=== PATIENT | female | born 2000 | race Caucasian/White ===

== ENCOUNTER → 2022-05-06 10:43 | Outpatient (BNVA) | payer OTHER, SELFPAY | PROVIDERS: PCP Physician Assistant Medical; Visit Provider Physician Assistant | DX: Z13.89 Encounter for screening for other disorder (principal) ==

== ENCOUNTER → 2022-05-07 08:09 | Outpatient (BNVA) | payer MEDICAID, SELFPAY | PROVIDERS: PCP Physician Assistant Medical; Visit Provider Surgery ==

== ENCOUNTER 2022-05-09 13:41 | Outpatient (REF) | payer MEDICAID, SELFPAY ==
--- NOTE | ~2022-05-09 | XR_ITS ---
EXAMINATION: XR CHEST CLINICAL INFORMATION: J45.909 - Unspecified asthma, uncomplicated COMPARISON: Remote chest radiographs 12/09/2007. TECHNIQUE: 2 views of the chest were obtained. FINDINGS: Lungs clear. No infiltrate or effusion. No hyperinflation. No coarsening bronchiolar markings. Heart size normal. The hilar and mediastinal contours and visualized bony structures are unremarkable. XR/XR chest 2V IMPRESSION: Unremarkable examination.
--- NOTE | 2022-05-09 14:33 | ECG_ITS ---
Test Reason : asthma Blood Pressure : / mmHG Vent. Rate : 080 BPM Atrial Rate : 080 BPM P-R Int : 162 ms QRS Dur : 078 ms QT Int : 356 ms P-R-T Axes : 048 065 042 degrees QTc Int : 410 ms Normal sinus rhythm with sinus arrhythmia Normal ECG No previous ECGs available Referred By: Inderjit Recinos Electronically Signed By:MARY CHAUDHRY MD
[2022-05-09 14:34] LABS: MANUAL DIFF FLAG NO
[2022-05-09 14:48] LABS: Basophils Percent Auto 0.2 % (0-2); Eosinophils Percent Auto 0.4 % (0-4); Hematocrit 38.7 % (37.0-47.0); Hemoglobin 13.1 g/dl (12.0-16.0); Imm Gran Abs Auto 0.03 X10*3/uL (0.00-0.03); Imm Gran Pct Auto 0.3 % (0.0-0.4); Lymphocytes Absolute Auto 3.8 X10*3/uL (1.2-4.9); Lymphocytes Percent Auto 41.4 % (20-40); Mean Corpuscular HGB Conc 33.9 g/dl (31.0-35.0); Mean Corpuscular Hemoglobin 29.4 pg (27.0-33.0); Mean Corpuscular Volume 86.8 fL (80.0-98.0); Mean Platelet Volume 8.6 fL (9.4-12.3); Monocytes Absolute Auto 0.5 X10*3/uL (0.1-1.2); Monocytes Percent Auto 5.1 % (2-11); Neutrophils Absolute Auto 4.9 x10*3/uL (2.0-8.3); Neutrophils Percent Auto 52.6 % (45-73); Platelet Count 300 X10*3/uL (160-400); Red Blood Count 4.46 X10*6/uL (4.20-5.50); Red Cell Distribution Width 13.2 % (11.0-16.0); White Blood Count 9.3 X10*3/uL (4.8-10.8)
[2022-05-09 15:22] LABS: Estimated Average Glucose 100 mg/dL; Hemoglobin A1c % 5.1 %
[2022-05-09 16:20] LABS: Alanine Aminotransferase 23 U/L (0-31); Albumin Level 4.3 g/dL (3.5-5.0); Alkaline Phosphatase 64 U/L (39-117); Anion Gap 11 (12-20); Aspartate Amino Transferase 18 U/L (5-31); Bilirubin Total 0.5 mg/dL (0.0-1.0); Blood Urea Nitrogen 11 mg/dL (9-16); C Reactive Protein 0.38 mg/dL (< or = 0.50); Calcium 9.6 mg/dL (8.4-10.2); Carbon Dioxide 28 mmol/L (22-29); Chloride 106 mmol/L (96-108); Cholesterol 218 mg/dL; Estimated Glomerular Filt Rate > 60; Glucose Random 78 mg/dL (60-115); HDL Cholesterol 45 mg/dL; Iron 137 mcg/dL (30-160); LDL Cholesterol Calculated 152 mg/dl; Percent Iron Saturation 41 % (15-50); Potassium 4.4 mmol/L (3.3-5.1); Sodium 141 mmol/L (135-145); Total Iron Binding Capacity 338 mcg/dL (228-428); Total Protein 7.4 g/dL (6.5-8.0); Triglycerides 107 mg/dL; Unsaturated Iron Binding 201 ug/dL
[2022-05-09 16:53] LABS: Ferritin 36 ng/mL (10-122); Insulin 6 uU/mL (2-29); TSH reflex Free T4 1.32 uIU/mL (0.32-4.0); Vitamin B12 431 pg/mL (200-900)
[2022-05-09 18:18] LABS: Vitamin D 25-OH Total 12.7 ng/mL (>30)
[2022-05-09 21:05] LABS: Folate 11.1 ng/mL (> or = 4.0)
[2022-05-12 12:48] LABS: Calcium (PTHI) 9.4 mg/dL (8.6-10.2); PTHI 31 pg/mL (16-77)
[2022-05-14 05:59] LABS: Zinc 93 mcg/dL (60-130)
[2022-05-15 00:28] LABS: Vitamin A 67 mcg/dL (38-98)
[2022-05-15 15:33] LABS: Vitamin B1 16 nmol/L (8-30)
== END 2022-05-09 13:42 | disposition home or self-care (01) ==
LOC: HO.LAB 13:41
PROVIDERS: Visit Provider Surgery
DX: K21.9 Gastro-esophageal reflux disease without esophagitis (principal); J45.909 Unspecified asthma, uncomplicated
CPT/HCPCS: 36415; 71046; 80053; 80061; 82306; 82607; 82728; 82746; 83036; 83525; 83540; 83970; 84425; 84443; 84590; 84630; 85025; 86140; 93005

== ENCOUNTER → 2022-05-14 11:52 | Outpatient (BNVA) | payer MEDICAID, SELFPAY | PROVIDERS: PCP Physician Assistant Medical; Visit Provider Physician Assistant Surgical | DX: Z11.0 Encounter for screening for intestinal infectious diseases (principal) | CPT/HCPCS: 99211 ==

== ENCOUNTER 2022-05-14 18:17 | Outpatient (REF) | payer MEDICAID, SELFPAY ==
[2022-05-15 15:00] LABS: H Pylori Breath Test Negative (Negative)
== END 2022-05-14 18:18 | disposition home or self-care (01) ==
LOC: HO.LNP 18:17
PROVIDERS: Visit Provider Surgery
DX: J45.909 Unspecified asthma, uncomplicated (principal); K21.9 Gastro-esophageal reflux disease without esophagitis
CPT/HCPCS: 83013

== ENCOUNTER → 2022-05-26 09:59 | Outpatient (BNVA) | payer OTHER, SELFPAY | PROVIDERS: PCP Physician Assistant Medical; Visit Provider Dietitian, Registered | DX: E66.01 Morbid (severe) obesity due to excess calories (principal); Z68.41 Body mass index [BMI] 40.0-44.9, adult | CPT/HCPCS: 97802 ==

== ENCOUNTER → 2022-05-28 12:19 | Outpatient (BNVA) | payer MEDICAID, SELFPAY | PROVIDERS: PCP Physician Assistant Medical; Visit Provider Counselor Mental Health ==

== ENCOUNTER → 2022-06-06 10:20 | Outpatient (BNVA) | payer MEDICAID, SELFPAY | PROVIDERS: PCP Physician Assistant Medical; Visit Provider Surgery | DX: E66.01 Morbid (severe) obesity due to excess calories (principal); Z68.41 Body mass index [BMI] 40.0-44.9, adult | CPT/HCPCS: 99212 ==

== ENCOUNTER → 2022-06-23 12:53 | Outpatient (BNVA) | payer OTHER, SELFPAY | PROVIDERS: PCP Physician Assistant Medical; Visit Provider Counselor Mental Health | DX: F50.81 Binge eating disorder (principal) ==

== ENCOUNTER 2022-06-27 07:44 | Outpatient (REF) | payer OTHER, SELFPAY ==
--- NOTE | ~2022-06-27 | FL_ITS ---
PROCEDURE: XR FLUOROSCOPY UPPER GI WITH AIR CLINICAL INFORMATION: Asthma. Preop. COMPARISON: None available. TECHNIQUE: Routine upper GI air-contrast study was performed in upright and lying position. FINDINGS: Following oral administration of thick barium and effervescent granules in upright view there is normal propagation of bolus from the oral cavity through the pharynx, esophagus into stomach without any evidence of obstruction, narrowing or stricture. On placing patient supine and prone lying, the course, caliber and peristalsis of the stomach, duodenal bulb and the sweep is normal. The mucosal pattern of stomach and the duodenum is normal. Minimal gastroesophageal reflux without hiatal hernia is noted. FLUOROSCOPY TIME: 0.9 minutes DOSE AREA PRODUCT: 27.857 uGy-m2 (microgray-meter squared) FL/FL upper GI w air IMPRESSION: Minimal gastroesophageal reflux without hiatal hernia.
--- NOTE | ~2022-06-27 | US_ITS ---
EXAMINATION: US COMPLETE ABDOMEN WITH LIVER ELASTOGRAPHY CLINICAL INFORMATION: Gastroesophageal reflux COMPARISON: None available. TECHNIQUE: Real-time imaging of the abdominal viscera. Noninvasive ultrasound liver fibrosis assessment is performed using Nakul ElastPQ point quantification shear wave elastography (2D-SWE) with a C5-2 MHz transducer. Multiple elastography samples are obtained. FINDINGS: PANCREAS: Visualized portions of pancreas are normal in appearance. ABDOMINAL AORTA: The proximal, middle, and distal aortic segments are normal in caliber. INFERIOR VENA CAVA: Visualized portions are normal. LIVER: The liver is normal in size. Liver contour is smooth. Diffusely increased echogenicity of the liver. No focal hepatic lesions. No intrahepatic biliary ductal dilatation. The right lobe measures 15.5 cm in length. The left lobe measures 7.1 cm in length. Portal flow is hepatopedal Shear wave liver elastography median stiffness is 1.58 m/s (reference: normal median stiffness is 1.3 m/s or less). IQR/median stiffness to assess sampling precision is 0.13 (reference: good quality data set is IQR/median stiffness of 0.15 or less). GALLBLADDER: The gallbladder is physiologically distended. There is a 1.7 cm mobile gallstone noted. Also appreciated is a 3 mm echogenic nonshadowing focus contiguous with the gallbladder wall which is suspected to represent a tiny polyp. COMMON BILE DUCT: Normal in caliber measuring 0.4 cm in diameter. RIGHT KIDNEY: Normal. No hydronephrosis. No renal calculi or focal parenchymal lesions. The kidney measures 10.5 cm in maximum dimension. LEFT KIDNEY: Normal. No hydronephrosis. No renal calculi or focal parenchymal lesions. The kidney measures 9.5 cm in maximum dimension. SPLEEN: Normal. The spleen measures 11.7 cm in maximum dimension. FREE FLUID: None. US/US abdomen comp w elastography IMPRESSION: 1. Diffusely increased liver echogenicity suggesting hepatic steatosis. 2. Liver elastography: In the absence of other known clinical signs, measurements rule out compensated advanced chronic liver disease. If there are known clinical signs, further testing may be needed for confirmation. REFERENCE: Society of Radiologists in Ultrasound Liver Stiffness Thresholds (2020): LIVER STIFFNESS THRESHOLDS: *Liver Stiffness equal or less than 1.3 m/s: High probability of being normal. *Liver Stiffness less than 1.7 m/s: In the absence of other known clinical signs, rules out compensated advanced chronic liver disease. *Liver Stiffness 1.7-2.1 m/s: Suggestive of compensated advanced chronic liver disease but need further test for confirmation. *Liver Stiffness over 2.1 m/s: Rules in compensated advanced chronic liver disease. *Liver Stiffness over 2.4 m/s: Suggestive of clinically significant portal hypertension. QUALITY OF DATA SET: *IQR/Median value equal or less than 0.15 implies a quality data set. *IQR/Median value over 0.15 implies a poor quality data set. SIGNIFICANT CHANGE FROM PRIOR EXAM: Significant change if liver stiffness measurement is 10% or greater from prior exam. OTHER CONSIDERATIONS: The stage of liver fibrosis may be overestimated in the setting of acute hepatitis, liver inflammation, elevated liver function tests, hepatic vascular congestion, obstructive cholestasis, non-fasting state, and infiltrative diseases such as amyloidosis and lymphoma. In some patients with NAFLD, the liver stiffness thresholds for compensated advanced chronic liver disease may be lower. In causes other than viral hepatitis and NAFLD, liver stiffness thresholds are not well established.
== END 2022-06-27 07:45 | disposition home or self-care (01) ==
LOC: HO.US 07:44
PROVIDERS: PCP Physician Assistant Medical; Visit Provider Surgery
DX: Z01.818 Encounter for other preprocedural examination (principal); E66.9 Obesity, unspecified; K21.9 Gastro-esophageal reflux disease without esophagitis; J45.909 Unspecified asthma, uncomplicated
CPT/HCPCS: 74246; 76705; 76981

== ENCOUNTER → 2022-06-30 08:27 | Outpatient (BNVA) | payer OTHER, SELFPAY | PROVIDERS: PCP Physician Assistant Medical; Visit Provider Surgery | DX: E66.01 Morbid (severe) obesity due to excess calories (principal) ==

== ENCOUNTER → 2022-07-10 13:17 | Outpatient (BNVA) | payer OTHER, SELFPAY | PROVIDERS: PCP Physician Assistant Medical; Visit Provider Surgery ==

== ENCOUNTER → 2022-07-21 10:40 | Outpatient (BNVA) | payer OTHER, SELFPAY | PROVIDERS: PCP Physician Assistant Medical; Visit Provider Counselor Mental Health | DX: F50.81 Binge eating disorder (principal) ==

== ENCOUNTER 2022-07-31 07:00 | Day surgery (SDC) | payer MEDICAID, SELFPAY ==
[2022-07-28 15:37] VITALS: BMI 39.4
--- NOTE | 2022-07-30 09:06 | HO.ANESPROP2 ---
Documented by User: Maria Luisa Shen NP 07/30/22 09:07 HPI - Anesthesia Eval Consult details Narrative: 22yo F for Cholecystectomy Laparoscopic,poss open PMFSH Active Problems Active Problems: All Active Problems (Updated 07/10/22 @ 14:01 by Adeel Phillips MD) Epigastric abdominal pain (Acute) Cholelithiasis (Acute) Binge-eating disorder, mild (Acute) Vitamin D deficiency (Acute) Morbid obesity (Acute) Back pain (Acute) Anxiety (Acute) GERD (gastroesophageal reflux disease) (Acute) Asthma (Acute) Past Medical History Medical History Anxiety Asthma Back pain GERD (gastroesophageal reflux disease) Family History Family History Mother No problems noted. Sister No problems noted. Sister No problems noted. Surgical History Surgical History Hx of wisdom tooth extraction Social History Social History Alcohol intake: current Alcohol intake frequency: holidays/special occasions only Patient Tobacco Use Status: Never used Tobacco Are you DNR?: No Advance Directives: No Advance Directives Information Provided: No Advance Directives on File: No Recently lost weight without trying: No Nutrition Risks: No Nutritional Risk Meds Allergies Allergy/AdvReac Type Severity Reaction Status Date / Time No Known Allergies Allergy Verified 07/10/22 13:25 Home Medications Medication Instructions Recorded Confirmed Last Taken Type albuterol sulfate 90 mcg/actuation 2 puff inhalation Q6H PRN Wheezing 05/07/22 07/28/22 Unknown History aerosol inhaler Exam Exam Date and Time: July 30, 2022 09 Height,Weight and Vital Signs: Height 4 ft 11 in Weight 88.451 kg Pertinent Lab Results Pertinent Lab Results: Laboratory Tests 05/09/22 05/09/22 14:31 14:31 WBC 9.3 Hgb 13.1 Hct 38.7 Plt Count 300 Sodium 141 Potassium 4.4 Chloride 106 Carbon Dioxide 28 BUN 11 Creatinine 0.78 Narrative Narrative: EKG 04/2022 Vent. Rate : 080 BPM ? ? Atrial Rate : 080 BPM ?? P-R Int : 162 ms? QRS Dur : 078 ms ? ? QT Int : 356 ms ? ? ? P-R-T Axes : 048 065 042 degrees ?? QTc Int : 410 ms ? Normal sinus rhythm with sinus arrhythmia Normal ECG No previous ECGs available Assessment and Plan Assessment Anesthesia Assessment: Chart Reviewed Documented by User: Marcela Leung MD 07/31/22 08:10 PMFSH Past Medical History Medical History Anxiety Asthma Back pain GERD (gastroesophageal reflux disease) Family History Family History Mother No problems noted. Sister No problems noted. Sister No problems noted. Family history of problems with anesthesia: No Surgical History Surgical History Hx of wisdom tooth extraction History of Problems with Anesthesia: No Social History Social History Alcohol intake: current Alcohol intake frequency: holidays/special occasions only Patient Tobacco Use Status: Never used Tobacco Are you DNR?: No Advance Directives: No Advance Directives Information Provided: No Advance Directives on File: No Recently lost weight without trying: No Nutrition Risks: No Nutritional Risk Meds Allergies Allergy/AdvReac Type Severity Reaction Status Date / Time No Known Allergies Allergy Verified 07/10/22 13:25 Home Medications Medication Instructions Recorded Confirmed Last Taken Type albuterol sulfate 90 mcg/actuation 2 puff inhalation Q6H PRN Wheezing 05/07/22 07/28/22 Unknown History aerosol inhaler Exam Airway Mallampati Class: II TM Dist: >3cm Denture: Upper Heart: rrr Lungs: cta Assessment and Plan Assessment Anesthesia Assessment: Anesthesia Plan Discussed Final Anesthetic Review Family History of Problems with Anesthesia: No History of Problems with Anesthesia: No ASA Class: II Final Preanesthetic Review: No Changes in Pt Med Stat, Meds/Allgs Chart Reviewed, Consent Obtained/Reviewed and Anes Risks/Benef Reviewed Patient Risk: Low Procedure Risk: Intermediate Anesthetic Plan Anesthetic Plan: GA Disposition: Standard PACU
[2022-07-31] VITALS (9 sets, daily range): BP systolic 102–110; BP diastolic 56–74; PULSE 63–81; RESP 14–20; TEMP 36.1–36.3; O2SAT 97–100
--- NOTE | 2022-07-31 06:54 | MHC.SHP ---
Pre-Procedural Eval Section A Date of Service: 07/31/22 The patient is an INPATIENT: No The History & Physical has been completed within 30 days and I have reviewed it.: Yes Section B Chief Complaint: Calculus of gallbladder without cholecystitis with Allergies: Allergies Allergy/AdvReac Type Severity Reaction Status Date / Time No Known Allergies Allergy Verified 07/10/22 13:25 Plan I have reviewed the history and physical and performed a pertinent physical examination on my patient. No changes have occurred unless specified. Time Spent With Patient Time: Total time managing care of this patient today ____ minutes.
--- NOTE | 2022-07-31 06:55 | W.PM.OPN ---
Operative Note Operative Note Date of Service: 07/31/22 Narrative: Preop diagnosis: [Gallstones and chronic calculous cholecystitis] Postop diagnosis: [Same] Procedure: [Laparoscopic cholecystectomy] Surgeon: Adeel Phillips MD Assist: [Sharyn Deleon RN] Anesthesia: [GET, Marcaine, 0.5% with epi] Estimated blood loss: [3cc] Specimen: [Gallbladder with contents] Intraoperative findings: [Adhesions of the omentum to the mid body of the gallbladder consistent with chronic calculous cholecystitis were noted; critical view of safety demonstrated with a 4-5 mm cystic duct and replace cystic artery that had branching at the gallbladder/liver interface. Artery was 4-5 mm and dissected along its entire course to its termination at the fundus of the gallbladder.] Indications: [The patient is a 22-year-old woman who is had a lifelong struggle with obesity. She was noted to have gallstones in her abdominal ultrasound workup and had mentioned symptoms of gastritis there were assessed at an outside hospital. In careful history evaluation, it sounds like the patient likely has chronic calculous cholecystitis given ongoing issues with intermittent indigestion and colicky pain, and the option of continued observation versus excision were discussed. I explained the symptoms of biliary colic and recommended laparoscopic cholecystectomy. I reviewed the option of continued observation and 2nd opinion which was declined. I also reviewed the inherent risks to surgery which include, but are not limited to: Bleeding that could require another operation or blood transfusion, the need for open surgery, the unlikely but possible issue of bile leak that could require an ERCP, the risk of retained common duct stones that could require an ERCP, the risk of common bile duct injury which would require transfer to a larger institution for another operation. Patient seemed to understand her options, declined a bioinformaticist or 2nd opinion and wants to proceed.] Procedure: [The patient was identified in preoperative holding and again in the operating room and placed supine on the table. An appropriate time-out was performed and preemptive local used at all trocar insertion sites. I began at the patient's supraumbilical midline and attempted to place a Veress needle through a stab incision, but could not obtain an appropriate drop test, so I left the Veress needle in Situ and opted for a left upper quadrant insertion, so a left subcostal skin wheal was raised with local, a stab incision made and the Veress needle inserted without difficulty. An appropriate drop test was performed. The needle was connected to high flow and opening pressures were 6 mmHg. A pneumoperitoneum of 15 mmHg was then obtained using carbon dioxide and I accessed the patient's abdomen through the right side of the abdomen in the anterior axillary line at the level of the umbilicus using a 5 mm Optiview trocar and 30 degree/5 mm laparoscopic without incident. Next a 5 mm epigastric and 5 mm right subcostal port were placed with preemptive analgesia under direct laparoscopic vision & a 12 mm trocar inserted at the umbilicus. The gallbladder was clearly identified and grasped by its fundus. It was retracted cranially and anteriorly and a lysis of adhesions of the omentum that was adherent to the body of the gallbladder was performed with minimal cautery that dissection began in the cystic triangle. The cystic duct was identified at its junction on the gallbladder and dissection began laterally, then circumferentially dissected using the [place] dissector and hook. The cystic artery was then carefully identified and found to be replaced so its course was dissected on the gallbladder to its termination at the fundus. Proximal cystic artery was circumferentially dissected. Once dissection of both structures was complete and the critical view of safety demonstrated, the duct and artery were double clipped proximally and once distally and sharply divided. Electrocautery was used to remove the gallbladder from its fossa on the liver. Liver bed was inspected for hemostasis and the clips were noted to be on the respective structures. The gallbladder was placed in an Endo-Catch bag and delivered through the umbilicus under direct laparoscopic vision. The abdomen was again inspected with the laparoscoped and a abdomen deflated to assess for hemostasis. The patient was returned to neutral position, the abdomen deflated and the fascia of the supraumbilical incision closed with interrupted Vicryl sutures. Skin was closed with 4-0 Monocryl subcuticular sutures. Mastisol and Steri-Strips were applied followed by Band-Aids. The patient tolerated the procedure well and was extubated recovered in stable condition. All sponge instrument counts were correct. At the patient's request I called Barbara at [phone] apprise her of the operation and post-op plan. Her questions seemed to be satisfactorily answered.]
[2022-07-31 07:21] LABS: UPreg QC Valid YES; Urine Pregnancy NEGATIVE (NEGATIVE)
[2022-07-31] MEDS: fentaNYL citrate/PF 100 MCG/2 ML VIAL 25 MCG IVPUSH (10:51)
[2022-07-31] MEDS: oxyCODONE HCl Immed Release 5 MG TABLET PO (10:52)
== END 2022-07-31 11:32 | disposition home or self-care (01) ==
PROVIDERS: Nurse Practitioner; PCP Physician Assistant Medical; Visit Provider Surgery
PROC: 0FT44ZZ Resection of Gallbladder, Percutaneous Endoscopic Approach (ICD-10-PCS; CPT 47562; principal; 2022-07-31 08:40)
DX: K80.12 Calculus of gallbladder with acute and chronic cholecystitis without obstruction (principal); K82.8 Other specified diseases of gallbladder; K21.9 Gastro-esophageal reflux disease without esophagitis; J45.909 Unspecified asthma, uncomplicated; M54.9 Dorsalgia, unspecified; E66.01 Morbid (severe) obesity due to excess calories; Z68.39 Body mass index [BMI] 39.0-39.9, adult; F41.1 Generalized anxiety disorder; Z79.899 Other long term (current) drug therapy
CPT/HCPCS: 47562; 81025; 88304; J0690; J2250; J2405; J3010

== ENCOUNTER → 2022-08-04 08:09 | Outpatient (BNVA) | payer SELFPAY | PROVIDERS: PCP Physician Assistant Medical; Visit Provider Surgery ==

== ENCOUNTER → 2022-08-08 09:14 | Outpatient (BNVA) | payer OTHER, SELFPAY | PROVIDERS: PCP Physician Assistant Medical; Visit Provider Surgery ==

== ENCOUNTER → 2022-08-13 13:49 | Outpatient (BNVA) | payer OTHER, SELFPAY | PROVIDERS: PCP Physician Assistant Medical; Visit Provider Counselor Mental Health | DX: F50.81 Binge eating disorder (principal) ==

== ENCOUNTER 2022-08-26 11:09 | Outpatient (AMB) | payer OTHER, SELFPAY ==
[2022-08-26 11:15] VITALS: BP 118/67; PULSE 71; TEMP 36.7; O2SAT 98; BMI 39.0
--- NOTE | 2022-08-26 11:15 | MHC.OFFVISWM ---
Intake VS Expanded 08/26/22 11:15 Height 4 ft 11 in Weight 193 lb 3.2 oz BMI 39.0 BP 118/67 Blood Pressure Location Lt brachial Blood Pressure Position Sitting Pulse 71 Pulse Source Pulse Oximeter Temp 98.1 F Temperature Source Temporal Artery Scan Pulse Oximetry 98 Oxygen Delivery Method Room Air Body Fat 82.6 Body Fat Percentage 42.8 Free Fat Mass 110.4 Muscle Mass 105.0 Visceral Mass 9.0 Water Mass 79.6 BMR 1,595 Intake Visit Reasons: (OV) F/U [facility] [employer] Required: No Allergies No Known Allergies Allergy (Verified 08/26/22 11:19) Medication List - Last Reconciled 08/26/22 by NEW Nelson albuterol sulfate 90 mcg/actuation 2 puffs inhalation Q6H PRN cholecalciferol (vitamin D3) 125 mcg PO DAILY HPI HPI Comments History of Present Illness Details 22 yo female returns for follow up [facility] program Initial weight on 05/07/22 was 212.2 pounds and a BMI of 42.8 Weight today is 193.2 with a BMI of 39 Weight loss 19 pounds or 8.9 % TBWL She denies any complaints. Meal plan: 2 Orgain protein shakes (1/2 scoop each in almond milk), 11-1, 2-4, 2 Zone Perfect protein bars8 pm and 11 pm and one meal 5 pm(8 forkfuls of protein and 8 forkfuls of salad or vegetables) Drinking 32-48 oz water Exercise plan: cardio at home, walking outside [facility] Medical History Anxiety Asthma Back pain GERD (gastroesophageal reflux disease) Surgical History History of laparoscopic cholecystectomy (07/31/22) Hx of wisdom tooth extraction Family History Mother No problems noted. Sister No problems noted. Sister No problems noted. Social History Alcohol intake: current Alcohol intake frequency: holidays/special occasions only Patient Tobacco Use Status: Never used Tobacco Physical Exam Const General: healthy appearing and no acute distress Resp Effort & Inspection: normal respiratory effort Auscultation: clear to auscultation bilaterally Cardio Rate: regular rate Rhythm: regular rhythm GI Inspection: Yes incision (healing) Auscultation: normal bowel sounds Extrem General: Yes normal to inspection Assessment & Plan Assessment & Plan (1) Obesity: Code(s): E66.9 - Obesity, unspecified Plan: Encouraged to continue meal plan and to resume exercise as she is able now that she is about 4 weeks post op from Lap [facility]. RTC 09/22/[address] Meyers Reminded of appt with on 09/03/22 Medications: Refilled cholecalciferol (vitamin D3) 125 mcg PO DAILY 30 caps 2RF E55.9 - Vitamin D deficiency, unspecified Coding Level of Care Code Est Pt Level 3 (24986) Diagnoses Obesity E66.9
== END 2022-08-26 11:34 | disposition home or self-care (01) ==
PROVIDERS: PCP Physician Assistant Medical; Visit Provider Physician Assistant Surgical
DX: E66.9 Obesity, unspecified (principal); Z68.39 Body mass index [BMI] 39.0-39.9, adult
CPT/HCPCS: 99213

== ENCOUNTER → 2022-08-26 11:09 | Outpatient (BNVA) | payer OTHER, SELFPAY | PROVIDERS: PCP Physician Assistant Medical; Visit Provider Physician Assistant Surgical ==

== ENCOUNTER 2022-09-16 10:16 | Outpatient (AMB) | payer OTHER, SELFPAY ==
[2022-09-16 10:44] VITALS: BP 123/58; PULSE 58; TEMP 36.8; O2SAT 100; BMI 39.1
--- NOTE | 2022-09-16 10:44 | MHC.OFFVISWM ---
Intake VS Expanded 09/16/22 10:44 Height 4 ft 11 in Weight 193 lb 6.4 oz BMI 39.1 BP 123/58 L Blood Pressure Location Rt brachial Blood Pressure Position Sitting Pulse 58 Pulse Source Pulse Oximeter Temp 98.3 F Temperature Source Temporal Artery Scan Pulse Oximetry 100 Oxygen Delivery Method Room Air Body Fat 85.0 Body Fat Percentage 44.0 Free Fat Mass 108.2 Muscle Mass 102.8 Visceral Mass 13.0 Water Mass 40.6 BMR 1,517 Intake Visit Reasons: (OV) Pre Op LSG 10/01/22 Dot Net Architect Required: No Allergies No Known Allergies Allergy (Verified 08/26/22 11:19) Medication List - Last Reconciled 09/16/22 by NEW Nelson albuterol sulfate 90 mcg/actuation 2 puffs inhalation Q6H PRN cholecalciferol (vitamin D3) 125 mcg PO DAILY ondansetron HCl 4 mg PO Q6H PRN pantoprazole 40 mg PO DAILY 90 days polyethylene glycol 3350 (Miralax) 17 grams PO DAILY sucralfate 10 mL PO BID HPI HPI Comments History of Present Illness Details This is a pre op appointment for scheduled LSG with Dr Recinos on 10/01/22 meal plan: 2 Orgain protein shakes (1/2 scoop each in almond milk), 11-1, 2-4, 2 Zone Perfect protein bars 8 pm and 11 pm and one meal 5 pm(8 forkfuls of protein and 8 forkfuls of salad or vegetables) exercise plan: Cardio videos at home and walking outside, planning to buy a treadmill for home Initial weight on 05/07/22 was 212.2 pounds and a BMI of 42.8 Weight today is 193.4 with a BMI of 39 Weight loss 18.8 pounds or 8.8 % [facility] awakens at: 6 am, bed at : 11pm [facility], [facility] Medical History Anxiety Asthma Back pain GERD (gastroesophageal reflux disease) Surgical History History of laparoscopic cholecystectomy (07/31/22) Hx of wisdom tooth extraction Family History Mother No problems noted. Sister No problems noted. Sister No problems noted. Social History Alcohol intake: current Alcohol intake frequency: holidays/special occasions only Patient Tobacco Use Status: Never used Tobacco Review of Systems Const All systems reviewed & are unremarkable except as noted in HPI and below Physical Exam Vital Signs: Last Vital Signs Temp 98.3 F 09/16/22 10:44 Pulse 58 09/16/22 10:44 BP 123/58 L 09/16/22 10:44 Pulse Ox 100 09/16/22 10:44 Oxygen Delivery Method Room Air 09/16/22 10:44 BMI result Body Mass Index 39.1 Const General: cooperative, healthy appearing and no acute distress Resp Effort & Inspection: normal respiratory effort Assessment & Plan Assessment & Plan (1) Obesity: Code(s): E66.9 - Obesity, unspecified Plan: 1. Plan for lap sleeve gastrectomy including upper GI endoscopy . If diaphragmatic or ventral hernias are present at time of surgery, these will be repaired laparoscopically as well. Risks and complications were discussed in detail including possible conversion to an open procedure, anastomotic leak, bleeding requiring transfusion, small bowel obstruction, , DVT and pulmonary embolism, cardiac, or pulmonary complications, as usp complications such as anastomotic ulcer, insufficient weight loss and vitamin deficiencies. I emphasized the importance of close follow-up, adherence to instructions and good communication. So far she has proven to be an excellent communicator and very compliant with all our directions accomplishing a great weight loss. I believe that she is an excellent candidate and she is ready. 2. Preop prescriptions were provided and explained the purpose of each one. Need to be purchased preop. Start Pantoprazole now as you get it from the pharmacy, 1 pill per day. Sucralfate and Zofran are for after surgery. 3. Bowel prep: please do 7 packets ?of Miralax mixing each one with an 8oz glass of water on 09/29/22 and the same amount on 09/30/22 4. Needs to purchase 1oz medicine cups . 5. Needs to purchase Children's liquid Tylenol for postop pain control. 6. Stop all the vitamins on 09/29/22. Avoid aspirin, motrin, Advil, Aleve, Ibuprofen, Naproxyn. Tylenol is OK. 7. Purchase the Celebrate 4:1 protein shakes from the hospital's gift shop. 8. Will do basic preop blood work-up on 09/22/22 fasting for 12 hours and is scheduled to see the Anesthesiologist prior to the day of surgery. 9. You must do the COVID test at the [facility] at PAT department the day before surgery on 09/30/22 10. Importance of adherence to postop follow-up and recommendations was underscored and she understands that. 11. Stop food and bars as of 09/17/22 and continue with 5 Orgain shakes (2 scoops in 8oz almond milk or water) at 7am-9am, 10am-12pm, Then 1 scoop in 8 oz almond milk or water at 2pm-4pm, 6pm-8pm and one more at 9pm-11pm 12. No soups, broths or V8 13. Please take at the day of surgery the following medications:?none 14. Be sure to continue to send your weight measurements to Dr Recinos weekly, and the most important weight measurement to send him is the day of surgery. 15. Stop any control pills and don't use them for one month after surgery 16. The patient's?medical?history has been reviewed and they are considered low risk for post op DVT and therefore DVT prophylaxis is not considered necessary. Travel after surgery was reviewed. The patient has not disclosed any travel plans during the first 30 days after surgery and they have been advised that within the first 30 days after surgery any bus, plane, train or car travel over 2 hours in duration is contraindicated due to the possibility of developing blood clots from immobility. Any travel, needs to include periods of ambulation of 10 minutes in duration every 2 hours.? Patient was instructed to discuss any plans for travel during this period with their bariatric surgeon.? Orders: Orders Type and Screen Today E66.9 - Obesity, unspecified, Z01.818 - Encounter for other preprocedural examination Vitamin B12 Today E66.9 - Obesity, unspecified, Z01.818 - Encounter for other preprocedural examination Comprehensive Met. Panel Today E66.9 - Obesity, unspecified, Z01.818 - Encounter for other preprocedural examination C Reactive Protein Today E66.9 - Obesity, unspecified, Z01.818 - Encounter for other preprocedural examination Ferritin Today E66.9 - Obesity, unspecified, Z01.818 - Encounter for other preprocedural examination Hemoglobin A1c Today E66.9 - Obesity, unspecified, Z01.818 - Encounter for other preprocedural examination IRON PROFILE Today E66.9 - Obesity, unspecified, Z01.818 - Encounter for other preprocedural examination Lipid Panel Today E66.9 - Obesity, unspecified, Z01.818 - Encounter for other preprocedural examination PTHI Today E66.9 - Obesity, unspecified, Z01.818 - Encounter for other preprocedural examination TSH reflex Free T4 Today E66.9 - Obesity, unspecified, Z01.818 - Encounter for other preprocedural examination Vitamin A Today E66.9 - Obesity, unspecified, Z01.818 - Encounter for other preprocedural examination Vitamin B1 Today E66.9 - Obesity, unspecified, Z01.818 - Encounter for other preprocedural examination Vitamin D 25-OH Total Today E66.9 - Obesity, unspecified, Z01.818 - Encounter for other preprocedural examination Zinc Today E66.9 - Obesity, unspecified, Z01.818 - Encounter for other preprocedural examination Prothrombin Time INR Today E66.9 - Obesity, unspecified, Z01.818 - Encounter for other preprocedural examination Partial Thromboplastin Time Today E66.9 - Obesity, unspecified, Z01.818 - Encounter for other preprocedural examination Complete Blood Count Auto Diff Today E66.9 - Obesity, unspecified, Z01.818 - Encounter for other preprocedural examination Medications: New polyethylene glycol 3350 (Miralax) 7 packets by mouth dissolved in 8 oz water each on 09/29/22. Repeat on 09/30/22 17 grams PO DAILY 14 ea 0RF pantoprazole 40 mg PO DAILY 90 tabs 1RF 90 days sucralfate 10 mL PO BID 420 mL 3RF ondansetron HCl 4 mg PO Q6H PRN 14 tabs 0RF nausea and vomiting Coding Level of Care Code Est Pt Level 3 (86641) Diagnoses Obesity E66.9
== END 2022-09-16 11:26 | disposition home or self-care (01) ==
PROVIDERS: PCP Physician Assistant Medical; Visit Provider Physician Assistant Surgical
DX: E66.9 Obesity, unspecified (principal)
CPT/HCPCS: 99213

== ENCOUNTER → 2022-09-16 10:16 | Outpatient (BNVA) | payer OTHER, SELFPAY | PROVIDERS: PCP Physician Assistant Medical; Visit Provider Physician Assistant Surgical ==

== ENCOUNTER 2022-09-22 07:54 | Outpatient (REF) | payer OTHER, SELFPAY ==
[2022-09-22 14:14] LABS: MANUAL DIFF FLAG NO
[2022-09-22 14:33] LABS: Basophils Percent Auto 0.1 % (0-2); Eosinophils Percent Auto 0.1 % (0-4); Hematocrit 37.4 % (37.0-47.0); Hemoglobin 12.9 g/dl (12.0-16.0); Imm Gran Abs Auto 0.02 X10*3/uL (0.00-0.03); Imm Gran Pct Auto 0.2 % (0.0-0.4); Lymphocytes Absolute Auto 2.5 X10*3/uL (1.2-4.9); Lymphocytes Percent Auto 29.6 % (20-40); Mean Corpuscular HGB Conc 34.5 g/dl (31.0-35.0); Mean Corpuscular Hemoglobin 30.2 pg (27.0-33.0); Mean Corpuscular Volume 87.6 fL (80.0-98.0); Monocytes Absolute Auto 0.5 X10*3/uL (0.1-1.2); Monocytes Percent Auto 6.2 % (2-11); Neutrophils Absolute Auto 5.3 x10*3/uL (2.0-8.3); Neutrophils Percent Auto 63.8 % (45-73); Platelet Count 252 X10*3/uL (160-400); Red Blood Count 4.27 X10*6/uL (4.20-5.50); Red Cell Distribution Width 13.3 % (11.0-16.0); White Blood Count 8.4 X10*3/uL (4.8-10.8)
[2022-09-22 14:47] LABS: Prothrombin Time 12.7 SEC (11.1-13.3)
[2022-09-22 14:50] LABS: Partial Thromboplastin Time 31.4 SEC (26.0-36.4)
[2022-09-22 15:12] LABS: Estimated Average Glucose 91 mg/dL; Hemoglobin A1c % 4.8 %
[2022-09-22 15:54] LABS: Alanine Aminotransferase 11 U/L (0-31); Albumin Level 4.4 g/dL (3.5-5.0); Alkaline Phosphatase 58 U/L (39-117); Anion Gap 12 (12-20); Aspartate Amino Transferase 15 U/L (5-31); Bilirubin Total 0.4 mg/dL (0.0-1.0); Blood Urea Nitrogen 13 mg/dL (9-16); C Reactive Protein 0.61 mg/dL (< or = 0.50); Calcium 9.6 mg/dL (8.4-10.2); Carbon Dioxide 24 mmol/L (22-29); Chloride 108 mmol/L (96-108); Cholesterol 200 mg/dL; Estimated Glomerular Filt Rate > 60; Glucose Random 76 mg/dL (60-115); HDL Cholesterol 37 mg/dL; Iron 95 mcg/dL (30-160); LDL Cholesterol Calculated 143 mg/dl; Percent Iron Saturation 36 % (15-50); Potassium 4.7 mmol/L (3.3-5.1); Sodium 139 mmol/L (135-145); Total Iron Binding Capacity 267 mcg/dL (228-428); Total Protein 7.8 g/dL (6.5-8.0); Triglycerides 102 mg/dL; Unsaturated Iron Binding 172 ug/dL; Vitamin B12 603 pg/mL (200-900)
[2022-09-22 15:55] LABS: Ferritin 46 ng/mL (10-122); TSH reflex Free T4 0.72 uIU/mL (0.32-4.0); Vitamin D 25-OH Total 61.1 ng/mL (>30)
[2022-09-24 13:48] LABS: Calcium (PTHI) 9.7 mg/dL (8.6-10.2); PTHI 45 pg/mL (16-77)
[2022-09-25 03:19] LABS: Zinc 69 mcg/dL (60-130)
[2022-09-26 13:28] LABS: Vitamin A 51 mcg/dL (38-98)
[2022-09-28 11:18] LABS: Vitamin B1 7 nmol/L (8-30)
== END 2022-09-22 07:55 | disposition home or self-care (01) ==
LOC: HO.LAB 07:54
PROVIDERS: PCP Physician Assistant Medical; Visit Provider Physician Assistant Surgical
DX: Z01.818 Encounter for other preprocedural examination (principal); E66.9 Obesity, unspecified; Z68.38 Body mass index [BMI] 38.0-38.9, adult
CPT/HCPCS: 36415; 80053; 80061; 82306; 82607; 82728; 83036; 83540; 83970; 84425; 84443; 84590; 84630; 85025; 85610; 85730; 86140

== ENCOUNTER 2022-09-22 07:54 | Outpatient (AMB) | payer OTHER, SELFPAY ==
[2022-09-22 12:16] VITALS: BMI 38.5
--- NOTE | 2022-09-22 12:16 | MHC.OFFVISWM ---
Intake VS Expanded 09/22/22 12:16 Height 4 ft 11 in Weight 190 lb 8 oz BMI 38.5 Body Fat 93.3 Body Fat Percentage 48.9 Free Fat Mass 97.6 Visceral Mass 20 Water Mass 66.7 Intake Visit Reasons: TV Follow Up SWL Allergies No Known Allergies Allergy (Verified 08/26/22 11:19) HPI TV Follow Up SWL HPI Details Start time: 12.02pm, End time: 12.24pm ?I spent 17 minutes speaking with the patient on the phone plus an additional 5 minutes reviewing and updating records for a total of 22 minutes HPI Comments History of Present Illness Details This is her preoperative appointment for her upcoming sleeve gastrectomy surgery Overall weight loss: 21.4lbs, or 10.08% [facility] Medical History Anxiety Asthma Back pain GERD (gastroesophageal reflux disease) Surgical History History of laparoscopic cholecystectomy (07/31/22) Hx of wisdom tooth extraction Family History Mother No problems noted. Sister No problems noted. Sister No problems noted. Social History Alcohol intake: current Alcohol intake frequency: holidays/special occasions only Patient Tobacco Use Status: Never used Tobacco Assessment & Plan Assessment & Plan (1) Obesity: Code(s): E66.9 - Obesity, unspecified Plan: 1. Plan for lap sleeve gastrectomy including upper GI endoscopy. All tests has been completed and reviewed and the patient is cleared for the surgery. ?If diaphragmatic or ventral hernias are present at time of surgery, these will be repaired laparoscopically as well. Risks and complications were discussed in detail including possible conversion to an open procedure, anastomotic leak, bleeding requiring transfusion, small bowel obstruction, , DVT and pulmonary embolism, cardiac, or pulmonary complications, as long term care administrator complications such as anastomotic ulcer, insufficient weight loss and vitamin deficiencies. I emphasized the importance of close follow-up, adherence to instructions and good communication. So far she has proven to be an excellent communicator and very compliant with all our directions accomplishing a great weight loss. I believe that she is an excellent candidate and she is ready. 2. Preop prescriptions were provided and explained the purpose of each one. Need to be purchased preop. Start Pantoprazole now as you get it from the pharmacy, 1 pill per day. Sucralfate and Zofran are for after surgery as needed. 3. Bowel prep: please do 7 packets ?of Miralax mixing each one with a an 8oz glass of water, crystal light, gatorade zero, or propel ?on 09/29/22 and the same amount on 09/30/22. Continue the protein shakes during? the bowel prep. 4. Needs to purchase 1oz medicine cups . 5. Needs to purchase Children's liquid Tylenol for postop pain control. 6. Avoid aspirin, motrin, Advil, Aleve, Ibuprofen, Naproxyn. Tylenol is OK. 7. She needs to purchase the Celebrate 4:1 protein shakes from the hospital's gift shop. 8. Will do basic preop blood work-up any day between Thursday09/22/22 and Thursday09/27/22 fasting for 12 hours and is scheduled to see the Anesthesiologist prior to the day of surgery. 9. You must do the COVID test at the [facility] at PAT department the day before surgery on 09/30/22 10. Importance of adherence to postop folllow-up and recommendations was underscored and she understands that. 11. Stop food and bars as of Thursday09/22/22 and continue with 4 ORGAIN protein shakes (ONE scoop EACH in 8oz almond milk) at 8am-10am, 11am-1pm, 2pm-4pm, 5pm-7pm and one more ORGAIN protein shake with TWO scoops in 8oz of almond milk at 8pm-10pm 12. No soups, broths or V8 13. The patient's?medical?history has been reviewed and they are considered low risk for post op DVT and therefore DVT prophylaxis is not considered necessary. Travel after surgery was reviewed. The patient has not disclosed any travel plans during the first 30 days after surgery and they have been advised that within the first 30 days after surgery any bus, plane, train or car travel over 2 hours in duration is contraindicated due to the possibility of developing blood clots from immobility. Any travel, needs to include periods of ambulation of 10 minutes in duration every 2 hours.? Patient was instructed to discuss any plans for travel during this period with their bariatric surgeon.? 14. Please take at the day of surgery the following medications: NONE at the day of surgery 16. Stop any control pills and don't use them for one month after surgery 17. Absolutely no smoking or vaping, or marijuana until the surgery and for at least the first 4 weeks. Only nicotine patches are allowed. 18. Send me weight measurements on Thursday and then on the day of surgery before you go to the hospital. 19. Avoid any steroids by mouth for any reason. Let me know if someone prescribes them to you (2) BMI 38.0-38.9,adult: Code(s): Z68.38 - Body mass index [BMI] 38.0-38.9, adult Telehealth Telehealth Location of provider rendering services: practice address Location of patient: address on file Patient Identification confirmed using: Name, : Yes Telehealth method: voice only Patient verbally consented to treatment: Yes Patient verbally consented to billing insurance company: Yes Patient informed of any privacy concerns related to visit: Yes Minutes spent on Phone/Video with Pt.: 22 Coding Level of Care Code Tele Est Pt Level 3 (57101) Diagnoses Obesity E66.9 BMI 38.0-38.9,adult Z68.38 Time Spent (min) 22
== END 2022-09-22 12:26 | disposition home or self-care (01) ==
LOC: HO.HBS 07:54
PROVIDERS: PCP Physician Assistant Medical; Visit Provider Surgery
DX: E66.9 Obesity, unspecified (principal); Z68.38 Body mass index [BMI] 38.0-38.9, adult
CPT/HCPCS: 99213

== ENCOUNTER 2022-09-29 11:08 | Outpatient (AMB) | payer OTHER, SELFPAY ==
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
== END 2022-09-29 11:42 | disposition home or self-care (01) ==
LOC: HO.HBST 11:08
PROVIDERS: PCP Physician Assistant Medical; Visit Provider Counselor Mental Health
DX: F50.81 Binge eating disorder (principal)
CPT/HCPCS: 90832

== ENCOUNTER → 2022-09-29 11:08 | Outpatient (BNVA) | payer OTHER, SELFPAY | PROVIDERS: PCP Physician Assistant Medical; Visit Provider Counselor Mental Health ==

== ENCOUNTER 2022-10-01 08:22 | Inpatient (IN) | payer MEDICAID, SELFPAY ==
[2022-09-25 10:57] VITALS: BMI 38.0
--- NOTE | 2022-09-26 23:35 | MHC.SHP ---
Pre-Procedural Eval Section A Date of Service: 09/26/22 The patient is an INPATIENT: Yes The History & Physical has been completed within 30 days and I have reviewed it.: Yes Section B Chief Complaint: Obesity, unspecified Relevant Family History (Specify if Yes): No Relevant Social History: None Medical History: No relevant PMH History of Previous Operations: No relevant previous surgery Allergies: Allergies Allergy/AdvReac Type Severity Reaction Status Date / Time No Known Allergies Allergy Verified 08/26/22 11:19 Review of Systems Sugical H&P ROS: Negative: Constitution, Cardiovascular, Respiratory, Neurological, Psychiatric, Hem-Onc, Allergic/Immunologic, Gastrointestinal, Genitourinary, Musculoskeletal, Integumentary, Endocrine and Eyes/Ears/Nose/Throat Exam Surgical H&P Exam: Normal: HEENT, Normal: Heart, Normal: Lungs, Normal: Extremities, Normal: Abdomen, Normal: Skin and Normal: Neurological Plan Diagnosis/Plan: Unchanged I have reviewed the history and physical and performed a pertinent physical examination on my patient. No changes have occurred unless specified. Time Spent With Patient Time: Total time managing care of this patient today ____ minutes.
--- NOTE | 2022-09-30 09:18 | P.CONAN_ITS ---
Documented by User: Maria Luisa Shen NP 09/30/22 09:20 HPI - Anesthesia Eval Consult details Narrative: 22yo F for Gastrectomy Sleeve,Egd, poss diaphragmatic hernia, poss Ventral hernia,poss open s/p lap anna 07/2022 with GA-ETT 7 PMFSH Active Problems Active Problems: All Active Problems (Updated 09/25/22 @ 10:57 by Dorita Amado RN) Morbid obesity (Acute) Vitamin D deficiency (Acute) Binge-eating disorder, mild (Acute) Cholelithiasis (Acute) Epigastric abdominal pain (Acute) Obesity (Acute) BMI 39.0-39.9,adult (Acute) Chronic calculous cholecystitis (Acute) Pre-op evaluation (Acute) BMI 38.0-38.9,adult (Acute) History of laparoscopic cholecystectomy (Acute 07/31/22) Back pain (Acute) Anxiety (Acute) GERD (gastroesophageal reflux disease) (Acute) Asthma (Acute) Past Medical History Medical History Anxiety Asthma Back pain GERD (gastroesophageal reflux disease) Family History Family History Mother No problems noted. Sister No problems noted. Sister No problems noted. Family history of problems with anesthesia: No Surgical History Surgical History History of laparoscopic cholecystectomy (07/31/22) Hx of wisdom tooth extraction History of Problems with Anesthesia: No Social History Social History Are you a primary professional healthcare representative to a significant other at home: No Do you presently have visiting nurse or other home services: No Alcohol intake: current Alcohol intake frequency: holidays/special occasions only Patient Tobacco Use Status: Never used Tobacco Use of substances other than those prescribed or required for medical reasons: No Have you been hit, kicked, punched, or otherwise hurt by someone within the past year? If so, by whom?: No Are you DNR?: No Advance Directives: No (parent is primary contact) Advance Directives Information Provided: Yes (brochure mailed) Advance Directives on File: No Recently lost weight without trying: No Eating poorly because of decreased appetite: No Nutrition Risks: No Nutritional Risk Patient : No FDLMP: 09/16/22 : No Poor oral hygiene: No Meds Allergies Allergy/AdvReac Type Severity Reaction Status Date / Time No Known Allergies Allergy Verified 08/26/22 11:19 Home Medications Medication Instructions Recorded Confirmed Last Taken Type albuterol sulfate 90 mcg/actuation 2 puff inhalation Q6H PRN Wheezing 05/07/22 09/25/22 Unknown History aerosol inhaler Exam Exam Date and Time: September 30, 2022 0918 Height,Weight and Vital Signs: Height 4 ft 11 in Weight 85.275 kg Pertinent Lab Results Pertinent Lab Results: Laboratory Tests 09/22/22 14:10 Blood Type O Positive Antibody Screen NEGATIVE Laboratory Tests 09/22/22 09/22/22 14:13 14:13 WBC 8.4 Hgb 12.9 Hct 37.4 Plt Count 252 Sodium 139 Potassium 4.7 Chloride 108 Carbon Dioxide 24 BUN 13 Creatinine 0.85 Narrative Narrative: EKG 04/2022 Vent. Rate : 080 BPM ? ? Atrial Rate : 080 BPM ?? P-R Int : 162 ms? QRS Dur : 078 ms ? ? QT Int : 356 ms ? ? ? P-R-T Axes : 048 065 042 degrees ?? QTc Int : 410 ms ? Normal sinus rhythm with sinus arrhythmia Normal ECG No previous ECGs available Assessment and Plan Assessment Anesthesia Assessment: Chart Reviewed Final Anesthetic Review Family History of Problems with Anesthesia: No History of Problems with Anesthesia: No Documented by User: Alcira Rodriguez MD 10/01/22 09:51 [facility] Past Medical History Medical History Anxiety Asthma Back pain GERD (gastroesophageal reflux disease) Family History Family History Mother No problems noted. Sister No problems noted. Sister No problems noted. Surgical History Surgical History History of laparoscopic cholecystectomy (07/31/22) Hx of wisdom tooth extraction Social History Social History Are you a primary professional healthcare representative to a significant other at home: No Do you presently have visiting nurse or other home services: No Alcohol intake: current Alcohol intake frequency: holidays/special occasions only Patient Tobacco Use Status: Never used Tobacco Use of substances other than those prescribed or required for medical reasons: No Have you been hit, kicked, punched, or otherwise hurt by someone within the past year? If so, by whom?: No Are you DNR?: No Advance Directives: No (parent is primary contact) Advance Directives Information Provided: Yes (brochure mailed) Advance Directives on File: No Recently lost weight without trying: No Eating poorly because of decreased appetite: No Nutrition Risks: No Nutritional Risk Patient : No FDLMP: 09/16/22 : No Poor oral hygiene: No Meds Allergies Allergy/AdvReac Type Severity Reaction Status Date / Time No Known Allergies Allergy Verified 08/26/22 11:19 Home Medications Medication Instructions Recorded Confirmed Last Taken Type albuterol sulfate 90 mcg/actuation 2 puff inhalation Q6H PRN Wheezing 05/07/22 09/25/22 Unknown History aerosol inhaler Exam Airway Mallampati Class: II TM Dist: >3cm Neck ROM: Full Loose/Missing/Broken Teeth: No Heart: RRR Lungs: CTA Assessment and Plan Assessment Anesthesia Assessment: Anesthesia Plan Discussed Final Anesthetic Review NPO: Yes ASA Class: II Final Preanesthetic Review: Meds/Allgs Chart Reviewed, Consent Obtained/Reviewed and Anes Risks/Benef Reviewed Patient Risk: Low Procedure Risk: Intermediate Anesthetic Plan Anesthetic Plan: GA Disposition: Standard PACU
[2022-10-01] VITALS (11 sets, daily range): BP systolic 95–144; BP diastolic 53–87; PULSE 66–87; RESP 14–16; TEMP 36–36.6; O2SAT 96–100
--- OUTSIDE RECORDS SUMMARY | 2022-10-01 08:27 | XMS_ITS | Continuity of Care Document ---
Author Name Unknown Organization [facility] Address [address] [place] [address]- Care Team Providers Care Surveillance Dual Rate Officer Name Role Phone Shivani Mccallum MD Primary Care Physician [phone] Encounter [facility] Date(s): 04/24/19 - 04/25/[address] [id number] [phone] Discharge Disposition: A-D/C Home Attending Physician: Nickie Armenta MD Admitting Physician: Phil MILAN, Sommer Referring Physician: Not on Staff, Referring MD Allergies, Adverse Reactions, Alerts Substance Reaction Severity Status NKA Active Medications ethinyl estradiol-levonorgestrel quadriphasic extended cycle oral tablet 1 tablet, By Mouth, Daily, # 91 tablet, 3 Refills, Maintenance, 07/13/15 15:29:49, Tablet, 1 tabletBy Mouth Daily,x91 days Start Date: 07/13/15 Stop Date: 07/11/16 Status: Ordered Ibuprofen PRN, Refills 0, Maintenance, Pain , Mild, 04/24/19 13:19:00 EDT Start Date: 04/24/19 Status: Ordered Protonix 40 mg oral delayed release tablet = 40 mg, By Mouth, Daily, # 30 capsule, 0 Refills, Maintenance, 04/25/19 11:11:00 EDT, EC Tablet, 150, cm, 04/24/19 17:24:00 EDT, Height, 95, kg, 04/24/19 13:08:00 EDT, Dry Weight Start Date: 04/25/19 Status: Ordered Problem List Condition Effective Dates Status Health Status Inform ant Asthma(Confirmed) Active Hyperandrogenism(Confirmed) Active Hyperinsulinism(Confirmed) Active Oligomenorrhea(Confirmed) Active Results Orders for Microbiology Reports Name Date Urine Culture (URINE CULTURE) 04/24/19 Microbiology Reports TEST:Urine Culture STATUS:Auth (Verified) BODY SITE: SOURCE:URINE COLLECTED DATE/TIME:04/24/19 4:28 AM Urine Culture SPECIMEN DESCRIPTION : URINE CLEAN CATCH/MIDSTREAM BD TRANSPORT TUBE SPECIAL REQUESTS : NONE CULTURE : Mixed bacterial eagle, indicative of urogenital contamination. REPORT STATUS : FINAL 04/25/2019 Vital Signs Most recent to oldest [Reference Range]: 1 2 3 Height 150 cm (04/24/19 5:24 PM) 150 cm (04/24/19 1:06 PM) 150 cm (04/24/19 12:55 PM) Weight 95 kg (04/24/19 1:06 PM) 95 kg (04/24/19 12:55 PM) 93 kg (04/24/19 12:07 PM) Oxygen Saturation [94-100 %] 99 % (04/25/19 9:00 AM) 98 % (04/24/19 9:00 PM) 100 % (04/24/19 5:24 PM) Pulse Rate [55-90 bpm] 71 bpm (04/25/19 9:00 AM) 85 bpm (04/24/19 9:00 PM) 80 bpm (04/24/19 5:24 PM) Body Mass Index [18.5-24.99] 42.22 *>HHI* (04/24/19 1:06 PM) 42.22 *>HHI* (04/24/19 12:55 PM) 41.33 *>HHI* (04/24/19 12:07 PM) Blood Pressure [90-138/55-84 mm Hg] 110/71mm Hg (04/24/19 5:24 PM) 110/67mm Hg (04/24/19 1:06 PM) 110/67mm Hg (04/24/19 12:55 PM) Respiratory Rate [16-30 br/min] 16 br/min (04/25/19 9:00 AM) 16 br/min (04/24/19 9:00 PM) 20 br/min (04/24/19 5:24 PM) Temperature [96.8-100.4 DegF] 98 DegF (04/25/19 9:00 AM) 99.1 DegF (04/24/19 9:00 PM) 98.4 DegF (04/24/19 5:24 PM) Mode of Delivery (Oxygen) Room air (04/25/19 9:00 AM) Room air (04/24/19 9:00 PM) Room air (04/24/19 5:24 PM) Blood pressure sites Arm, right (04/24/19 5:24 PM) Arm, right (04/24/19 1:06 PM) Arm, right (04/24/19 12:55 PM) Temperature Route Oral (04/25/19 9:00 AM) Oral (04/24/19 9:00 PM) Axillary (04/24/19 5:24 PM) Dry Weight 95 kg (04/24/19 12:55 PM) 93 kg (04/24/19 12:07 PM) 93 kg (04/24/19 12:51 AM) Weight Obtained Via Bed scale (04/24/19 12:55 PM) Patient/family stated (04/24/19 12:51 AM) Dry Weight Obtained Via Bed scale (04/24/19 12:55 PM) Patient/family stated (04/24/19 12:51 AM) Social History Social History Type Response Smoking Status Never smoker entered on: 07/13/15 Sex
[2022-10-01 08:45] LABS: UPreg QC Valid YES; Urine Pregnancy NEGATIVE (NEGATIVE)
[2022-10-01] MEDS: Lactated Ringers 1,000 ML 999 ML IV (08:49)
[2022-10-01] MEDS: Aprepitant 32 MG/4.4 ML VIAL IVPUSH (08:54)
--- NOTE | 2022-10-01 09:07 | PHA.MEDREC ---
Pharmacy Consult ? Medication Reconciliation Pharmacy has completed the medication reconciliation. Reviewed med rec done by nursing
--- NOTE | 2022-10-01 10:08 | P.BOP_ITS ---
Brief Operative Note Date of Service: 10/01/22 Pre-op diagnosis: Severe obesity with comorbidities (see below) Post-op diagnosis: same Procedure: INITIAL PATIENT BMI ON PRESENTATION AT OUR OFFICE: 42.9 kg/m2 LAST BMI BEFORE SURGERY: 39 Kg/m2 COMORBIDITIES: asthma, GERD, anxiety, back pain ?The patient presented to the Weight Management Program with significant obesity that was negatively impacting the patient's comorbidities as listed above.? The program is a phased program with a special focus on preoperative medical weight management to promote substantial weight loss and prepare the patients for the second phase of the program: bariatric surgery. The patient participated in an intensive weekly lifestyle ?intervention and exercise program during which the patient ?has lost between the initial office visit and the last preoperative visit 21.4 lbs, or 10.08% of initial actual body weight. It was deemed appropriate for the patient to now have bariatric surgery. In light of the current Covid-19 pandemic and the well documented strong association of obesity and increased risk of worse outcomes if infected with Covid-19 (REFERENCES: https://pubmed.ncbi.nlm.nih.gov/18350985/ ,? https://pubmed. ncbi.nlm.nih.gov/34403253/ ), any delay in undergoing bariatric surgery may lead to the patient's worsening health condition and increased?risk of more severe Covid-19 disease if infected. In addition a recent?study from [facility] published in [facility] on 02/11/2021 ([email or web address].pdf) found that, among patients with obesity, substantial weight loss achieved with surgery was associated with improved outcomes of COVID-19 infection. The findings suggest that obesity can be a modifiable risk factor for the severity of COVID-19 infection. In addition, the patient met the BMI-criteria for bariatric surgery based on the BMI on initial presentation. The patient should not be penalized for achieving such weight loss because ?it is not sustainable long-term without surgical intervention and it was achieved in preparation for bariatric surgery ?under my direction and based on my published research (f [email or web address]).pdf and? https://www.soard.org/article/G1187-0004(70)23863-X/pdf ) ?that a 10% preoperative weight loss improves long-term weight loss after surgery and reduces perioperative complications.? Insurance carriers such as [facility] have endorsed my recommendations ?and have included in their policies criteria to include a 10% preoperative weight loss requirement. PROCEDURE: Esophago-gastroscopy, laparoscopic sleeve gastrectomy and laparoscopic gastropexy INDICATIONS: This is a 22 year-old female who was electively scheduled for laparoscopic, possibly open sleeve gastrectomy. The risks and complications of the procedure were discussed with the patient in advance, particularly the possibility of ; pulmonary embolism; staple line leak; bleeding; GERD; cardiac, pulmonary, or renal complications; as well as long-term problems such as insufficient weight loss, vitamin deficiency, strictures, or ulcers. The patient understood all the risks, and was in agreement to proceed with surgery. DESCRIPTION OF PROCEDURE: After informed consent was obtained from the patient, the patient was given preoperative antibiotics, and was transferred to the operating room. After successful induction of general anesthesia, pneumatic compression devices were placed on both lower extremities. An upper endoscopy was performed next. The oropharynx and esophagus appeared to be within normal limits. There was no diaphragmatic hernia present consistent with the findings of the preoperative upper GI. The stomach was entered. Then after all fluid and air were suctioned and the stomach was fully decompressed, the scope was withdrawn and secured in the mid esophagus. The patient was then prepped and draped in the usual sterile manner, and abdominal access was established at the right upper quadrant with the Genevieve technique. A 12 mm blunt port was inserted, and the abdomen was insufflated with CO2 to a pressure of 15 mmHg. Under direct visualization, additional ports were placed, specifically two 5 mm Versi-step ports to the left upper quadrant, and a 5 mm Versi-Step port to the right upper quadrant. 1% lidocaine plain was used to infiltrate all port sites as well as all fascia defects. Using the EndoClose suture passer device, I placed a #1 Polysorb tie across the falciform ligament in order to retract it up against the abdominal wall and prevent injury of the ligament with our instruments during the procedure. Following that, the patient was placed in a steep reverse Trendelenburg position. An additional 5 mm port was placed to the right flank for the Mediflex retractor that was used to retract the left lobe of the liver. The gastro-esophageal fat pad was opened with the ultrasonic device (Thunderbeat, Olympus) and the anterior esophagus and hiatus were exposed. The angle of His was opened with the ultrasonic device the fundus of the stomach from any diaphragmatic and splenic attachments. I then opened the gastrocolic ligament between the transverse colon and the greater curvature of the stomach with the ultrasonic device to enter the lesser sac and facilitate the ligation of the short gastric vessels. I started at a mid-point along the greater curvature and using the Thunderbeat, all short gastric vessels were divided all the way to the angle of His until the left delfina was completely dissected at its entirety. I then divided the gastro-colic ligament distally to a distance of about 3-4 cm proximal to the pylorus. The stomach was then divided transversely with two Endo RANGEL-45 purple and three RANGEL-60 articulating purple loads using the SIGNIA stapler and loads. Every effort was made that the gastric sleeve had a tubular shape and an even caliber throughout. Once the sleeve resection was completed, the staple line of the gastric sleeve was reinforced with Hemoclips. The resected stomach was retrieved without difficulty from the Genevieve port. A gastropexy was then performed in order to prevent postoperative GERD and partial gastric volvulus. Several interrupted 2.0 Surgidac sutures were placed between the sleeve's staple line and the previously divided greater omentum and gastro-colic ligament using the Endo-Stitch device. ?An upper endoscopy was performed. There was no narrowing at the GE junction. The scope was easily advanced all the way to the pylorus which was clearly visualized. There was no narrowing anywhere and the sleeve's caliber was even throughout. The sleeve's staple line was inspected and there was no evidence of ischemia, bleeding or dehiscence. At that point the gastroscope was withdrawn from the patient?s mouth while we were decompressing the bowel and the stomach from any remaining air. I looked into the lesser sac to see how the sleeve was situating and it was situating well. There was no bleeding from the staple line, spleen, or short gastric vessels. The Mediflex retractor was removed, and the undersurface of the liver was inspected and there was no bleeding. The patient was placed in supine position. I closed the fascial defect of the 12 mm port site with a figure of eight #1 Polysorb suture. Then 30cc Ropivacaine plain with 10 mg of Dexamethasone were used to infiltrate the fascial closure as well as all skin incisions. A total of 7ml Zynrelef was applied in the Genevieve wound. At this point, the abdomen was deflated, all ports were removed under direct vision, and no bleeding was noted from any of the port sites. The skin incisions were irrigated with saline and were closed with 4-0 absorbable monofilament sutures. Steri-Strips and OpSites were used to cover all incisions. The patient was extubated and was transferred in stable condition to the recovery room for further care. I was present and performed all turcios parts of the procedure. Ms. Caballeroson was the sound assistant. There were no residents to assist with this case. Matty Recinos MD, PhD, FACS Surgeon: Inderjit Recinos MD Anesthesia: GETA, local and other (TAP block and 7ml Zynrelef) Was an Social Media Specialist used for this Procedure?: No Social Media Specialist: Riddhi Sahu Estimated blood loss (mL): 10 IV fluids (mL): 3,000 Urine output (mL): 0 (No Chen to record output) Pathology: other (Stomach) Condition: stable Disposition: PACU
--- NOTE | 2022-10-01 10:11 | PM.PNGS ---
Subjective Subjective Date of Service: 10/02/22 Interval history: Feels well. Mild incisional pain. She is tolerating phase 1 bariatric diet Physical Exam Vital Signs: Vital Signs: Last Vital Signs Temp 97.1 F 10/01/22 08:39 Pulse 78 10/01/22 08:39 Resp 16 10/01/22 08:39 BP 95/53 L 10/01/22 08:39 Pulse Ox 98 10/01/22 08:39 O2 Del Method Room Air 10/01/22 08:39 BMI result Body Mass Index 38.0 GI: Inspection: Yes normal to inspection, Yes incision (clean, dry and intact) and Yes obesity Palpation (GI): Soft to palpation Extrem: Right lower extremity: normal to inspection (no calf tenderness) Left lower extremity: normal to inspection (no calf tenderness) Objective Data Active Medications Albuterol Sulfate (Albuterol Sulfate (0.083%) 2.5 Mg/3 Ml Vial.Neb) 2.5 mg INHALE ONCE PRN PRN Reason: Shortness of Breath/Wheezing Albuterol Sulfate (Albuterol Sulfate (0.083%) 2.5 Mg/3 Ml Vial.Neb) 2.5 mg INHALE ONCE PRN PRN Reason: Wheezing Fentanyl (Fentanyl Citrate/Pf 100 Mcg/2 Ml Vial) 25 mcg IVPUSH Q5M PRN; Protocol PRN Reason: Pain, Moderate(Pain Scale 4-6) Hydromorphone HCl (Hydromorphone Hcl 0.5 Mg/0.5 Ml Syringe) 0.25 mg IVPUSH Q5M PRN; Protocol PRN Reason: Pain, Severe (Pain Scale 7-10) Lactated Ringer's (Lr) 1,000 mls @ 100 mls/hr IVCONT .Q10H SHIVANI Lactated Ringer's (Lr) 1,000 mls @ 999 mls/hr IV .Q1H1M [facility] Stop: 10/01/22 10:30 Last Admin: 10/01/22 08:49 Dose: 999 mls/hr Documented By: JELLY Ondansetron HCl (Ondansetron Hcl 4 Mg/2 Ml Vial) 4 mg IVPUSH ONCE PRN PRN Reason: Nausea and Vomiting Oxycodone HCl (Oxycodone Hcl Immed Release 5 Mg Tablet) 5 mg PO ONCE PRN PRN Reason: Pain, Severe (Pain Scale 7-10) Labs 10/02/22 05:32 10/02/22 05:32 Labs: Laboratory Results - last 24 hr 10/01/22 08:26 Urine Test NEGATIVE Procedures Date of Service Date of Service: 10/02/22 Progress Note: A&P Assessment and plan (1) Obesity: Status: Acute Assessment and Plan: s/p laparoscopic sleeve gastrectomy and gastropexy Doing well Will check am labs and if OK the patient will be discharged home (2) BMI 39.0-39.9,adult: Status: Acute (3) Anxiety: Status: Acute (4) Back pain: Status: Acute (5) GERD (gastroesophageal reflux disease): Status: Acute (6) Asthma: Status: Acute (7) S/P laparoscopic sleeve gastrectomy: Status: Acute Time Spent With Patient Time: Total time managing care of this patient today ____ minutes. Quality Stroke Does the patient have a stroke diagnosis?: No VTE Prior VTE?: No VTE Risk Level:: Surgical - moderate VTE Device Contraindication: N/A - Device Ordered VTE Drug Contraindication: Treatment Not Indicated
--- NOTE | 2022-10-01 12:32 | P.DS_ITS ---
DS: Providers Provider Date of Service: 10/02/22 Date of admission: 10/01/22 08:22 Primary care physician: NEW Espinoza DS: Diagnosis Discharge Diagnosis (1) Obesity: Status: Acute (2) BMI 39.0-39.9,adult: Status: Acute (3) Anxiety: Status: Acute (4) Back pain: Status: Acute (5) GERD (gastroesophageal reflux disease): Status: Acute (6) Asthma: Status: Acute DS: Summary Hospital Course Hospital Course: ADMITTING DIAGNOSIS: morbid obesity, GERD DISCHARGE DIAGNOSIS: same, s/p laparoscopic sleeve gastrectomy PAST SURGICAL HISTORY: none PROCEDURE: upper endoscopy, laparoscopic sleeve gastrectomy DISCHARGE SUMMARY: History of Present Illness: The patient is a 22 year-old woman with a BMI of 42.8 kg/m2 and associated co- morbidities as described above. The patient had extensive work-up, lost 21.4 lbs preoperatively and was electively scheduled for laparoscopic, possible open sleeve gastrectomy and gastropexy. Risks and complications of the surgery were discussed with the patient in advance, particularly the possibility of , pulmonary embolism, anastomotic leak, bleeding, bowel injury, GERD, cardiac, renal or pulmonary complications. The patient understood all the risks and was in agreement with the surgical plan. Hospital Course: The patient underwent an uneventful laparoscopic sleeve gastrectomy with gastropexy and repair of diaphragmatic hernia on the day of admission. Postoperatively, the patient was transferred to the surgical floor. The patient received IV Acetaminophen and IV dilaudid for pain control. Patient was started on bariatric phase 1 diet POD #0. On postoperative day one, the patient was feeling well without nausea, vomiting, fevers, or tachycardia. The patient had some mild incisional pain and the abdomen was soft. On the morning of postoperative day one, the patient was continued on 1 ounce of water or ice every half hour. During the day, the patient did fairly well, having some incisional pain, but able to ambulate adequately and to tolerate liquids well. Since the patient is doing well, we decided that the patient was ready to be discharged. The patient was given instructions to follow-up with me next week and to call my office for any fever over 101, persistent abdominal pain, nausea, vomiting, GERD, symptoms of DVT such as calf tenderness, or leg swelling, or pulmonary embolism such as chest pain or shortness of breath. The patient was also instructed to drink 40-60 ounces of liquids per day using the 1-ounce cups. The patient had been given prescriptions for Tylenol for pain, Zofran prn for nausea, and pantoprazole and carafate previously. The patient was encouraged to ambulate and use the incentive spirometer. The patient was allowed to shower, but no baths, and encouraged to stay active at home. All of these instructions were given to the patient personally. All questions were answered and the patient understood all instructions, the instructions were also given to the patient in print. Time Spent with Patient Time attestation: Total time managing care of this patient today ____ minutes. Discharge coordination time: Less than 30 minutes Quality: Safe Use of Opioids Does Pt have an Active Cancer Diagnosis on the Problem List?: No Quality: Stroke Does the patient have a stroke diagnosis?: No Physical Exam Vital Signs: Vital Signs: Last Vital Signs Temp 97.1 F 10/01/22 08:39 Pulse 78 10/01/22 08:39 Resp 16 10/01/22 08:39 BP 95/53 L 10/01/22 08:39 Pulse Ox 98 10/01/22 08:39 O2 Del Method Room Air 10/01/22 08:39 BMI result Body Mass Index 38.0 DS: Data Data Completed and Pending Pending studies at discharge: Pending at discharge 10/01/22 11:51 Surgical [PTH] Routine Labs on day of discharge: Laboratory Results - last 24 hr 10/01/22 08:26 Urine Test NEGATIVE Discharge Plan Discharge Anticipated Discharge Date/Time: 10/02/22 10:29 Patient Disposition: Home, Self-Care Discharge Diagnosis: s/p sleeve gastrectomy Referrals: Nhung Childers PA [Primary Care Provider] - 1 Week Discharge Medications: Continued albuterol sulfate 90 mcg/actuation HFA aerosol inhaler 2 puff inhalation Q6H PRN (Reason: Wheezing) pantoprazole 40 mg tablet,delayed release (DR/EC) 40 mg PO DAILY 90 Days Qty: 90 1RF sucralfate 100 mg/mL suspension 10 ml PO BID Qty: 420 3RF Rx Instructions: postop medication ondansetron HCl 4 mg tablet 4 mg PO Q6H PRN (Reason: nausea and vomiting) Qty: 14 0RF Rx Instructions: post op medication Discontinued cholecalciferol (vitamin D3) 125 mcg (5,000 unit) capsule 125 mcg PO DAILY Qty: 90 0RF Discharge Orders: Discharge Order (Routine); Ordered 10/02/22 Ordered By: Inderjit Recinos Activity on Discharge: No heavy lifting Stand Alone Forms: Patient Portal Discharge page Care Plan Goals: weight loss Health Concerns: morbid obesity Plan of Treatment: No tub baths, sex or returning to work until discussed at first post op appointment. No exercise, alcohol, tobacco or illegal drug use. Continue to use incentive spirometer hourly while awake. Walk in home for 5- 10 minutes every 2 hours during the first week. Continue phase 1 diet today and start phase 2 diet tomorrow morning. Follow all instructions in the bariatric handbook and call with any questions. 1. Please call your doctor or come back to the emergency room should any new symptoms arise. 2. You will receive a courtesy call from [facility] 24-48 hours after discharge. 3. Activity: abstain from alcohol, practice limited stair climbing, no bending, no driving, no exercise, no illicit substances, no lifting, no sex, no tub bath, no work. 4. Diet: continue as discussed with bariatric team.. 5. Dressing Change/Wound Care: Do not change or remove surgical dressings unless they are wet or soiled. 6. Call your doctor if: - Your temperature exceeds 101.5 F - You experience excessive pain or swelling - You have an unexpected reaction to medication - You have excessive bleeding - You experience continued vomiting/nausea - Your incision begins to separate - Your incision shows signs of infection such as increased redness, swelling, excessive pain, heat, or drainage (light blood or clear fluid is normal) 7. General instructions: No lifting greater than 5 lbs for the next 4 weeks. No driving within 24 hours of taking narcotic pain medications. If you do not move your bowels in the next 2 days, please take milk of magnesia over the counter. Please follow the post op diet and do not advance your diet until you are seen in the office in about 2 weeks. Please walk around your home every hour or two to prevent blood clots from forming in your legs. You do not need to wake from sleeping to walk. Please sleep in a bed or couch to prevent kinking at the hips and knees. Please take your incentive spirometer (your lung field artillery targeting technician) home with you and use it for the next few days to prevent pneumonias. You may shower, no hot tubs, baths or swimming pools. Please call the office with any questions or concerns such as increasing abdominal pain, fever, chills, shortness of breath, chest pain, leg pain or swelling, or redness or drainage from your incisions. Do not hesitate to contact the office with any questions at . The patient's medical history has been reviewed and they are considered low risk for post op DVT and therefore DVT prophylaxis is not considered necessary. Travel after surgery was reviewed. The patient has not disclosed any travel plans during the first 30 days after surgery and they have been advised that within the first 30 days after surgery any bus, plane, train or car travel over 2 hours in duration is contraindicated due to the possibility of developing bloo d clots from immobility. Any travel, needs to include periods of ambulation of 10 minutes in duration every 2 hours. The patient was instructed to discuss any plans for travel during this period with their bariatric surgeon. Assessment: stable post op sleeve gastrectomy
[2022-10-01 13:03] LABS: Hematocrit 35.8 % (37.0-47.0); Hemoglobin 12.4 g/dl (12.0-16.0)
[2022-10-01] MEDS: Lactated Ringers 1,000 ML 100 ML IVCONT ×2 (13:13→20:21)
[2022-10-01 13:16] LABS: Anion Gap 12 (12-20); Blood Urea Nitrogen 8 mg/dL (9-16); Carbon Dioxide 25 mmol/L (22-29); Chloride 107 mmol/L (96-108); Estimated Glomerular Filt Rate > 60; Glucose Random 97 mg/dL (60-115); Potassium 3.8 mmol/L (3.3-5.1); Sodium 140 mmol/L (135-145)
[2022-10-01] MEDS: Famotidine/PF 20 MG/2 ML VIAL IVPUSH ×2 (13:59→20:15)
--- NOTE | 2022-10-01 15:19 | PC.NURSE ---
Patient arrived from PACU @ 1345. Alert but dozing. Pain 06/25. previously medicated in PACU. Medicated with scheduled pepcid and ice packs given. Instructed on incentive spirometer. Able to return demonstrate. Dressings x 5 upper abdomen all D/I.
[2022-10-01] MEDS: ceFAZolin Sodium/Dextrose,Iso 2 GM/50 ML PIGGYBACK IV (16:25)
[2022-10-01] MEDS: 0.9 % Sodium Chloride Flush 3 ML SYRINGE IVFLUSH (20:15)
[2022-10-01] MEDS: Acetaminophen 1,000 MG/100 ML PIGGYBACK 400 MG IV (20:21)
[2022-10-02 03:23] VITALS: BP 124/73; PULSE 86; RESP 14; TEMP 36.1; O2SAT 99
[2022-10-02] MEDS: Lactated Ringers 1,000 ML 100 ML IVCONT (05:26)
[2022-10-02 05:45] LABS: MANUAL DIFF FLAG NO
[2022-10-02 05:52] LABS: Basophils Percent Auto 0.1 % (0-2); Hemoglobin 12.9 g/dl (12.0-16.0); Imm Gran Abs Auto 0.09 X10*3/uL (0.00-0.03); Imm Gran Pct Auto 0.6 % (0.0-0.4); Lymphocytes Absolute Auto 1.4 X10*3/uL (1.2-4.9); Lymphocytes Percent Auto 8.8 % (20-40); Mean Corpuscular HGB Conc 34.9 g/dl (31.0-35.0); Mean Corpuscular Hemoglobin 30.6 pg (27.0-33.0); Mean Corpuscular Volume 87.7 fL (80.0-98.0); Mean Platelet Volume 9.4 fL (9.4-12.3); Monocytes Absolute Auto 0.5 X10*3/uL (0.1-1.2); Monocytes Percent Auto 3.2 % (2-11); Neutrophils Absolute Auto 13.6 x10*3/uL (2.0-8.3); Neutrophils Percent Auto 87.3 % (45-73); Platelet Count 254 X10*3/uL (160-400); Red Blood Count 4.22 X10*6/uL (4.20-5.50); Red Cell Distribution Width 13.3 % (11.0-16.0); White Blood Count 15.5 X10*3/uL (4.8-10.8)
[2022-10-02 06:11] LABS: Anion Gap 14 (12-20); Blood Urea Nitrogen 7 mg/dL (9-16); Calcium 9.6 mg/dL (8.4-10.2); Carbon Dioxide 23 mmol/L (22-29); Chloride 107 mmol/L (96-108); Estimated Glomerular Filt Rate > 60; Glucose Random 110 mg/dL (60-115); Potassium 3.9 mmol/L (3.3-5.1); Sodium 140 mmol/L (135-145)
[2022-10-02 07:02] VITALS: BP 116/68; PULSE 66; RESP 16; TEMP 36.6; O2SAT 100
[2022-10-02] MEDS: Famotidine/PF 20 MG/2 ML VIAL IVPUSH (07:59)
--- NOTE | 2022-10-02 10:08 | HO.POSTANES ---
Post Anesthesia Evaluation Post Anesthesia Evaluation Date of Service: 10/01/22 Vital Signs: Vital Signs Temp Pulse Resp BP Pulse Ox O2 Del Method 10/02/22 07:21 Room Air 10/02/22 07:02 97.9 F 66 16 116/68 100 Room Air 10/02/22 03:23 96.9 F 86 14 124/73 99 10/01/22 23:02 96.8 F 66 14 113/67 97 Room Air Anesthesia: General Endotracheal-GETA Mental Status: Awake Pain Control: Satisfactory Nausea/Vomiting: None Hydration: Adequate Anesthesia-Related Issues: No Anes. Related Issues
== END 2022-10-02 11:00 | disposition home or self-care (01) | DRG 403 ==
LOC: HO.SSSA 12:31 → HO.S3 13:07
PROVIDERS: Nurse Practitioner; Physician Assistant; Admitting Provider Surgery; PCP Physician Assistant Medical; Visit Provider Surgery
PROC: 0DB64Z3 Excision of Stomach, Percutaneous Endoscopic Approach, Vertical (ICD-10-PCS; CPT 43845; principal; 2022-10-01 10:10)
DX: E66.01 Morbid (severe) obesity due to excess calories (principal); F41.9 Anxiety disorder, unspecified; J45.909 Unspecified asthma, uncomplicated; M54.9 Dorsalgia, unspecified; Z68.39 Body mass index [BMI] 39.0-39.9, adult; K21.9 Gastro-esophageal reflux disease without esophagitis; Z79.899 Other long term (current) drug therapy
CPT/HCPCS: 36415; 80048; 81025; 85014; 85018; 85025; 86850; 86900; 86901; 88304; 88305; 88307; 88342; A4649; C9088; C9145; J0131; J0690; J1100; J1170; J2250; J2405; J2795; J3010

== ENCOUNTER → 2022-10-01 08:22 | Outpatient (BNV) | payer MEDICAID, SELFPAY | PROVIDERS: Admitting Provider Surgery; PCP Physician Assistant Medical; Visit Provider Surgery | DX: E66.01 Morbid (severe) obesity due to excess calories (principal); Z68.39 Body mass index [BMI] 39.0-39.9, adult | CPT/HCPCS: 43659; 43775; 99024 ==

== ENCOUNTER 2022-10-07 13:44 | Outpatient (AMB) | payer OTHER, SELFPAY ==
--- NOTE | 2022-10-07 14:13 | MHC.OFFVISWM ---
Intake VS Expanded 10/07/22 14:23 Height 4 ft 11 in Weight 179 lb 6.4 oz BMI 36.2 BP 112/58 L Blood Pressure Location Rt brachial Blood Pressure Position Sitting Pulse 76 Pulse Source Pulse Oximeter Temp 97.4 F Temperature Source Tympanic Pulse Oximetry 98 Oxygen Delivery Method Room Air Body Fat 74.2 Body Fat Percentage 41.5 Free Fat Mass 105.0 Muscle Mass 99.6 Visceral Mass 8.0 Water Mass 75.6 BMR 1,514 Intake Visit Reasons: (OV) 6 Days PO LSG 10/01/22 Allergies No Known Allergies Allergy (Verified 10/07/22 14:26) HPI HPI Comments History of Present Illness Details 22 yo female POD 6 s/p LSG on 10/01/22 pos BM no pain quirino celebrate 4:1 shakes 1 scoop each x 3 24 oz water PFSH Medical History (Updated 10/07/22 @ 00:02 by Anup Kirk) Anxiety Asthma Back pain Binge-eating disorder, mild BMI 38.0-38.9,adult BMI 39.0-39.9,adult Cholelithiasis Chronic calculous cholecystitis Epigastric abdominal pain GERD (gastroesophageal reflux disease) Obesity Pre-op evaluation Vitamin D deficiency Surgical History (Updated 10/07/22 @ 14:27 by Acacia Macias CMA) History of laparoscopic cholecystectomy (07/31/22) Hx of laparoscopic partial gastrectomy Hx of wisdom tooth extraction Family History Mother No problems noted. Sister No problems noted. Sister No problems noted. Social History Household Members: Family Housing: House Are you a primary pulmonary care nurse to a significant other at home: No Do you presently have visiting nurse or other home services: No Alcohol intake: current Alcohol intake frequency: holidays/special occasions only Patient Tobacco Use Status: Never used Tobacco Physical Exam Vital Signs: Last Vital Signs Temp 97.4 F 10/07/22 14:23 Pulse 76 10/07/22 14:23 BP 112/58 L 10/07/22 14:23 Pulse Ox 98 10/07/22 14:23 Oxygen Delivery Method Room Air 10/07/22 14:23 BMI result Body Mass Index 36.2 GI Inspection: Yes incision (c/d/i) Assessment & Plan Assessment & Plan (1) S/P laparoscopic sleeve gastrectomy: Code(s): Z98.84 - Bariatric surgery status Plan: POD 6 s/p LSG on 10/01/[address] Recinos Weight loss prior to surgery was 24.8 pounds or 11.6% TBWL. Original weight on 05/07/22 was 212.2 pounds and op weight was 187.4 pounds. Be sure to text Dr Recinos exactly 1 week after surgery your weight from your home scale so he can adjust your meal plan. Continue meal plan until f/u w gibbs in 3 weeks May shower, no submersion in bath for another week Continue abdominal binder with activity and exercise for the next 2 weeks. Exercise prior to surgery was cardio videos at home, may resume tomorrow No abdominal exercises for 6 weeks post operatively Will be emailed link to post op video for review Reminded of the pace of drinking, 2 mL per minute, 1 oz/15 min. Coding Level of Care Code Global (30283) Diagnoses S/P laparoscopic sleeve gastrectomy Z98.84
[2022-10-07 14:23] VITALS: BP 112/58; PULSE 76; TEMP 36.3; O2SAT 98; BMI 36.2
== END 2022-10-07 14:52 | disposition home or self-care (01) ==
PROVIDERS: PCP Physician Assistant Medical; Visit Provider Physician Assistant Surgical
DX: Z98.84 Bariatric surgery status (principal)
CPT/HCPCS: 99024

== ENCOUNTER → 2022-10-07 13:44 | Outpatient (BNVA) | payer OTHER, SELFPAY | PROVIDERS: PCP Physician Assistant Medical; Visit Provider Physician Assistant Surgical ==

== ENCOUNTER → 2022-10-14 10:25 | Outpatient (BNVA) | payer OTHER, SELFPAY | PROVIDERS: PCP Physician Assistant Medical; Visit Provider Counselor Mental Health ==

== ENCOUNTER 2022-10-14 10:42 | Outpatient (AMB) | payer OTHER, SELFPAY ==
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
== END 2022-10-28 10:49 | disposition home or self-care (01) ==
PROVIDERS: PCP Physician Assistant Medical; Visit Provider Counselor Mental Health
DX: F50.81 Binge eating disorder (principal)
CPT/HCPCS: 90832

== ENCOUNTER 2022-10-31 11:54 | Outpatient (AMB) | payer MEDICAID, SELFPAY ==
--- NOTE | 2022-10-31 11:57 | MHC.OFFVISWM ---
Intake VS Expanded 10/31/22 12:03 Height 4 ft 11 in Weight 167 lb BMI 33.7 BP 120/82 Blood Pressure Location Rt brachial Blood Pressure Position Sitting Pulse 95 Pulse Source Pulse Oximeter Temp 97.0 F Temperature Source Tympanic Pulse Oximetry 95 Oxygen Delivery Method Room Air Body Fat 67.6 Body Fat Percentage 40.6 Free Fat Mass 99.2 Muscle Mass 94.2 Visceral Mass 7.0 Water Mass 71.4 BMR 1,435 Intake Visit Reasons: (OV) 28Days PO LSG 10/01/22 Eyeletter Required: No Allergies No Known Allergies Allergy (Verified 10/07/22 14:26) Medication List - Last Reconciled 10/31/22 by NEW Nelson albuterol sulfate 90 mcg/actuation 2 puffs inhalation Q6H PRN pantoprazole 40 mg PO DAILY 90 days sucralfate 10 mL PO BID HPI HPI Comments History of Present Illness Details This?a?22?yo female who is s/p LSG without hiatal hernia repair on?10/01/22. Presents for 1 month post op visit. Weight today is 167 pounds, with a BMI of 33.7. There has been a 45.2 pound weight loss,(initial weight 212.2 pounds) since starting the program on 05/07/22 reflecting a 21.3% total body weight loss and a weight loss of 20.4 pounds since surgery (operative weight 187.4 pounds) reflecting a 10.8% TBWL since surgery. No complaints of nausea, emesis, abdominal pain or reflux. Reports infrequent but normal bowel movements every 2 days and uses stool softeners regularly. She reports she had the right medial 5 mm trocar site incision open last night. She applied a steri-strip . Present meal plan includes: 2 celebrate 4 in 1 shake 1 scoop each, 8-10, 11-1 celebrate 4 in 1, 2 scoops 2-4 pm ZP bar 5-8 32 oz water ? Exercise routine includes: videos at home [facility] Medical History (Updated 10/14/22 @ 09:36 by Luisa Siegel) BMI 38.0-38.9,adult Pre-op evaluation Chronic calculous cholecystitis BMI 39.0-39.9,adult Obesity Epigastric abdominal pain Cholelithiasis Binge-eating disorder, mild Vitamin D deficiency Back pain Anxiety GERD (gastroesophageal reflux disease) Asthma Surgical History Hx of laparoscopic partial gastrectomy History of laparoscopic cholecystectomy (07/31/22) Hx of wisdom tooth extraction Family History Mother No problems noted. Sister No problems noted. Sister No problems noted. Social History Household Members: Family Housing: House Are you a primary hearing healthcare practitioner to a significant other at home: No Do you presently have visiting nurse or other home services: No Alcohol intake: current Alcohol intake frequency: holidays/special occasions only Patient Tobacco Use Status: Never used Tobacco Physical Exam GI Other: mild reactionary erythema to R med 5 mm port site, no infection, approximated well Assessment & Plan Assessment & Plan (1) S/P laparoscopic sleeve gastrectomy: Code(s): Z98.84 - Bariatric surgery status Plan: willing to continue meal plan She will text Dr Meyers if she wants to change RTC 1 month Continue exercise Call if any problems Coding Level of Care Code Global (23652) Diagnoses S/P laparoscopic sleeve gastrectomy Z98.84
[2022-10-31 12:03] VITALS: BP 120/82; PULSE 95; TEMP 36.1; O2SAT 95; BMI 33.7
== END 2022-10-31 12:18 | disposition home or self-care (01) ==
PROVIDERS: PCP Physician Assistant Medical; Visit Provider Physician Assistant Surgical
DX: E66.9 Obesity, unspecified (principal); Z68.33 Body mass index [BMI] 33.0-33.9, adult; Z90.3 Acquired absence of stomach [part of]; Z98.84 Bariatric surgery status
CPT/HCPCS: 99024

== ENCOUNTER → 2022-10-31 11:54 | Outpatient (BNVA) | payer MEDICAID, SELFPAY | PROVIDERS: PCP Physician Assistant Medical; Visit Provider Physician Assistant Surgical ==

== ENCOUNTER 2022-12-03 13:45 | Outpatient (AMB) | payer MEDICAID, SELFPAY ==
--- NOTE | 2022-12-03 13:03 | A.OFFVIS_ITS ---
Intake VS Expanded 12/03/22 13:04 Height 4 ft 11 in Weight 158 lb 3.2 oz BMI 31.9 Intake Visit Reasons: (TV) PO LSG 10/01/22 Flare Stitcher Required: No Allergies No Known Allergies Allergy (Verified 10/07/22 14:26) Medication List - Last Reconciled 12/03/22 by NEW Nelson albuterol sulfate 90 mcg/actuation 2 puffs inhalation Q6H PRN pantoprazole 40 mg PO DAILY 90 days sucralfate 10 mL PO BID HPI HPI Comments History of Present Illness Details This?a?22?yo female who is s/p LSG without hiatal hernia repair on?10/01/22. Presents for 2 month post op visit. Weight today is 158.2 pounds, with a BMI of 32. There has been a 54 pound weight loss,(initial weight 212.2 pounds) since starting the program on 05/07/22 reflecting a 25.4% total body weight loss and a weight loss of 29.2 pounds since surgery (operative weight 187.4 pounds) reflecting a 15.5% TBWL since surgery. No complaints of nausea, emesis, abdominal pain or reflux. Reports infrequent but normal bowel movements every 2 days and uses stool softeners regularly. She reports she is doing well. She got a gym membership. She reports working very hard and only requests to decrease to two shakes, otherwise does not want to incorporate food at this time. Present meal plan includes: 2 celebrate 4 in 1 shake 1 scoop each, 8 -10, 11-1 celebrate 4 in 1, 2 scoops 2- 4 pm mixed with unsweetened almond milk. ZP bar 5-8 32 oz water ? Exercise routine includes: joined PF, treadmill 1 hr, bike 30 minutes 2-3 x per week, 400-500 per session PFSH Medical History (Updated 12/03/22 @ 13:47 by NEW Nelson) Obesity BMI 38.0-38.9,adult Pre-op evaluation Chronic calculous cholecystitis BMI 39.0-39.9,adult Epigastric abdominal pain Cholelithiasis Binge-eating disorder, mild Vitamin D deficiency Back pain Anxiety GERD (gastroesophageal reflux disease) Asthma Surgical History Hx of laparoscopic partial gastrectomy History of laparoscopic cholecystectomy (07/31/22) Hx of wisdom tooth extraction Family History Mother No problems noted. Sister No problems noted. Sister No problems noted. Social History Household Members: Family Housing: House Are you a primary career and technology education teacher to a significant other at home: No Do you presently have visiting nurse or other home services: No Alcohol intake: current Alcohol intake frequency: holidays/special occasions only Patient Tobacco Use Status: Never used Tobacco Physical Exam GI Other: incisions appear all healed Assessment & Plan Assessment & Plan (1) Obesity: Code(s): E66.9 - Obesity, unspecified Plan: change meal plan to celebrate 4 in 1 2 scoops in 8 oz unsweetened almond milk x 2', continue ZP bar Recc increase gym to 4-5 x per week rtc 1 month, sooner if any issues (2) S/P laparoscopic sleeve gastrectomy: Code(s): Z98.84 - Bariatric surgery status Coding Level of Care Code Global (00952) Diagnoses Obesity E66.9 S/P laparoscopic sleeve gastrectomy Z98.84
[2022-12-03 13:04] VITALS: BMI 31.9
== END 2022-12-03 13:48 | disposition home or self-care (01) ==
LOC: HO.HBS 13:45
PROVIDERS: PCP Physician Assistant Medical; Visit Provider Physician Assistant Surgical
DX: E66.9 Obesity, unspecified (principal); Z68.31 Body mass index [BMI] 31.0-31.9, adult; Z90.3 Acquired absence of stomach [part of]; Z98.84 Bariatric surgery status
CPT/HCPCS: 99024

== ENCOUNTER → 2022-12-03 13:45 | Outpatient (BNVA) | payer MEDICAID, SELFPAY | PROVIDERS: PCP Physician Assistant Medical; Visit Provider Physician Assistant Surgical ==

== ENCOUNTER 2023-01-02 09:50 | Outpatient (AMB) | payer MEDICAID, SELFPAY ==
--- NOTE | 2023-01-02 09:41 | A.OFFVIS_ITS ---
Intake VS Expanded 01/02/23 09:42 Height 4 ft 11 in Weight 151 lb 4 oz BMI 30.5 Intake Visit Reasons: VIDEO PO LSG 10/01/22 [employer] Required: No Allergies No Known Allergies Allergy (Verified 10/07/22 14:26) Medication List - Last Reconciled 01/02/23 by NEW Nelson albuterol sulfate 90 mcg/actuation 2 puffs inhalation Q6H PRN HPI HPI Comments History of Present Illness Details This?a?22?yo female who is s/p LSG without hiatal hernia repair on?10/01/22. Presents for 3 month post op visit. Weight today is 151.4 pounds, with a BMI of 30.5. There has been a 54 pound weight loss,(initial weight 212.2 pounds) since starting the program on 05/07/22 reflecting a 25.4% total body weight loss and a weight loss of 29.2 pounds since surgery (operative weight 187.4 pounds) reflecting a 15.5% TBWL since surgery. No complaints of nausea, emesis, abdominal pain or reflux. Reports infrequent but normal bowel movements every 2 days and uses stool softeners regularly. She reports she is doing well. She got a gym membership. She states she has not been able to exercise as much over the last month as she was on vacation in [place], for a few days and never got back to exercising since. Present meal plan includes: 2 celebrate 4 in 1 shake 2 scoop each, 1 1-1, 3-5, 2 scoops 2-4 pm mixed with unsweetened almond milk. ZP bar 7-9 64 oz water? Exercise routine includes: none in the last month joined PF, treadmill 1 hr, bike 30 minutes 2-3 x per week, 400-500 per session PFSH Medical History (Updated 12/03/22 @ 13:47 by NEW Nelson) Obesity BMI 38.0-38.9,adult Pre-op evaluation Chronic calculous cholecystitis BMI 39.0-39.9,adult Epigastric abdominal pain Cholelithiasis Binge-eating disorder, mild Vitamin D deficiency Back pain Anxiety GERD (gastroesophageal reflux disease) Asthma Surgical History Hx of laparoscopic partial gastrectomy History of laparoscopic cholecystectomy (07/31/22) Hx of wisdom tooth extraction Family History Mother No problems noted. Sister No problems noted. Sister No problems noted. Social History Household Members: Family Housing: House Are you a primary career and guidance counselor to a significant other at home: No Do you presently have visiting nurse or other home services: No Alcohol intake: current Alcohol intake frequency: holidays/special occasions only Patient Tobacco Use Status: Never used Tobacco Assessment & Plan Assessment & Plan (1) Obesity: Code(s): E66.9 - Obesity, unspecified Plan: Patient wishes to continue current meal plan. She is following it closely per her report. She was encouraged very strongly to return to the gym. She was encouraged to text weekly with any questions as well as her weight measurements. Her goal is 500 calories 4-5 times per week at the gym and she will return to the office in approximately 3 weeks time. Telehealth Telehealth Location of provider rendering services: practice address Location of patient: address on file Patient Identification confirmed using: Name, : Yes Telehealth method: voice only Patient verbally consented to treatment: Yes Patient verbally consented to billing insurance company: Yes Patient informed of any privacy concerns related to visit: Yes Minutes spent on Phone/Video with Pt.: 15 Coding Level of Care Code Tele Est Pt Level 3 (97208) Diagnoses Obesity E66.9 Time Spent (min) 20
[2023-01-02 09:42] VITALS: BMI 30.5
== END 2023-01-02 09:53 | disposition home or self-care (01) ==
LOC: HO.HBS 09:50
PROVIDERS: PCP Physician Assistant Medical; Visit Provider Physician Assistant Surgical
DX: E66.9 Obesity, unspecified (principal)
CPT/HCPCS: 99213

== ENCOUNTER → 2023-01-02 09:50 | Outpatient (BNVA) | payer MEDICAID, SELFPAY | PROVIDERS: PCP Physician Assistant Medical; Visit Provider Physician Assistant Surgical ==

== ENCOUNTER 2023-02-13 10:48 | Outpatient (AMB) | payer MEDICAID, SELFPAY ==
[2023-02-13 10:29] VITALS: BMI 29.8
--- NOTE | 2023-02-13 10:29 | MHC.OFFVISWM ---
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 Presents for 4 month post op visit. Weight today is 147.6 pounds, with a BMI of 29.8. There has been a 64.6 pound weight loss,(initial weight 212.2 pounds) since starting the program on 05/07/22 reflecting a 30.4% total body weight loss and a weight loss of 39.8 pounds since surgery (operative weight 187.4 pounds) reflecting a 21.2% TBWL since surgery. No complaints of nausea, emesis, abdominal pain or reflux. Reports infrequent but normal bowel movements every 2 days and uses stool softeners regularly. She reports she is doing well except for a cold recently. She has also got caught up at work and she was not able to exercise as much. She states she ran out of [employer] 10 days ago and she started doing Orgain on her own without communicating. not taking a multivitamin Present meal plan includes: 1 scoop Orgain w 8 oz unsweetened almond milk, 11 am-1130 am, 10 pm- 1030 pm 2-3 ZP bar randomly, 2 pm, 5 pm, +/- 9 pm 48 oz water, 2 cups coffee 2 TBS creamer. Exercise routine includes: joined PF, treadmill 1 hr, bike 30 minutes 2 x per week, 400-500 per session PFSH Medical History Obesity BMI 38.0-38.9,adult Pre-op evaluation Chronic calculous cholecystitis BMI 39.0-39.9,adult Epigastric abdominal pain Cholelithiasis Binge-eating disorder, mild Vitamin D deficiency Back pain Anxiety GERD (gastroesophageal reflux disease) Asthma Surgical History Hx of laparoscopic partial gastrectomy History of laparoscopic cholecystectomy (07/31/22) Hx of wisdom tooth extraction Family History Mother No problems noted. Sister No problems noted. Sister No problems noted. Social History Household Members: Family Housing: House Are you a primary md do resident urgent care to a significant other at home: No Do you presently have visiting nurse or other home services: No Alcohol intake: current Alcohol intake frequency: holidays/special occasions only Patient Tobacco Use Status: Never used Tobacco Assessment & Plan Assessment & Plan (1) Overweight (BMI 25.0-29.9): Code(s): E66.3 - Overweight Plan: Change meal plan: Orgain shake 2 scoops w 12 oz of unsweetened almond milk 2 ZP bars meal 4 forks of protein and 4 of vegetables. Return to the gym and track calories 4 x per week. Telehealth Telehealth Location of provider rendering services: practice address Location of patient: address on file Patient Identification confirmed using: Name, : Yes Telehealth method: voice only Patient verbally consented to treatment: Yes Patient verbally consented to billing insurance company: Yes Patient informed of any privacy concerns related to visit: Yes Minutes spent on Phone/Video with Pt.: 15 Coding Level of Care Code Tele Est Pt Level 3 (04452) Diagnoses Overweight (BMI 25.0-29.9) E66.3 Time Spent (min) 18
== END 2023-02-13 10:53 | disposition home or self-care (01) ==
LOC: HO.HBS 10:48
PROVIDERS: PCP Physician Assistant Medical; Visit Provider Physician Assistant Surgical
DX: E66.3 Overweight (principal)
CPT/HCPCS: 99213

== ENCOUNTER → 2023-02-13 10:48 | Outpatient (BNVA) | payer MEDICAID, SELFPAY | PROVIDERS: PCP Physician Assistant Medical; Visit Provider Physician Assistant Surgical ==